=== PATIENT | female | born 1940 | race Caucasian/White ===

== ENCOUNTER → 2016-02-17 | Outpatient (CLI) | payer OTHER ==
[~2016-02-17] VITALS: Ht 172.7 cm; Wt 89.7 kg
[~2016-02-17] MED LIST: ALLEGRA ALLERG180 MG PO; AMITRIPTYLINE H10 M1 PO; AMITRIPTYLINE H10 M3 PO; ASPIRIN325 PO; CALCIUM; CALTRATE 600600 MG PO; CALTRATE PLUS1 EACH PO; CENTRUM SILVER1 EAC4 PO; COLACE100 MG PO; COMPOUNDED CREAM; DYAZIDE 37.5-21 EACH PO; ELAVIL PO; FENOFIBRIC ACI135 MG PO; FEXOFENADINE H180 MG PO; FISH OIL 1,001000 MG PO; FISHOIL; FLONASE; FLONASE 0.05%50 MCG NASAL; HYDROCHLOROTHIA25 M1 PO; HYDROCODON-ACE1 EAC7 PO; HYDROCODONE-AP1 EAC6 PO; HYDROCODONE-APA1 TA1 PO; LORTAB 5-500 T1 EAC1 PO; LOVENOX40 MG/0.4 SUBQ; MOBIC15 MG PO; MS CONTIN15 MG PO; MULTIVITAMINS PO; MULTIVITAMINS1 EAC7 PO; NEURONTIN 300300 M1 PO; NEURONTIN600 MG PO; NEURONTIN800 MG PO; NORCO 5-325 TA1 EACH PO; PROCARDIA XL30 MG PO; PROCARDIA XL60 MG PO; SIMVASTATIN40 MG PO; STOOL SOFTENER1 EAC2 PO; TRIAMTERENE-HC1 EAC1 PO; TRICOR145 MG PO; TUMS PO
--- NOTE | ~2016-02-17 | HPC ---
[facility] [address] [place] [address] PAIN MANAGEMENT CONSULTATION Name: ANNA COFFMAN Room #: REG [facility] Golden#: [id number] Admission: 02/17/16 Attend Phys: Guilherme Daily DO Discharge: Date of : 38 Report #: [id number] THIS REPORT FOR: //name// CC: Edison Daily The patient is a very pleasant 75-year-old female typically treated for lumbar radiculopathy requiring complex medication management. Last urine drug screen 11/21/2015 was positive for prescribed medications. The patient has done well with occasional epidural injections having had an epidural injection L5-S1 on 11/21/2015. She had had 2 other injections in 2015, August and May. Returns to pain clinic today noting that last injection afforded 55% relief for greater than a month, pain has gradually begun to recur. She uses MS Contin 15 mg b.i.d., hydrocodone 5/325 four a day, gabapentin 300 mg 3 tablets 3 times a day for chronic pain issues. Not having problems with daytime somnolence, mental acuity changes, or constipation. Does note her pain is an 8 or 9 on a 0-10 visual analog scale presently, primarily low back, bilateral legs, posterior aspect down through the buttocks. Pain is exacerbated with standing, walking, even sitting to some degree. PHYSICAL EXAMINATION: Relatively unchanged, 75-year-old female, BMI and vital signs as noted on EMR . Vital signs stable. Alert and oriented to person, place and time, judged to be a reasonable historian. Rises from chair using armrest, modestly antalgic gait. Lumbar flexion is limited. Positive straight leg raise bilaterally with diminished plantar flexion strength. ASSESSMENT: Symptomatic lumbar radiculopathy secondary to spinal stenosis. The patient with chronic pain issues. We reviewed the fact that opiate medications are being used to provide analgesia adequate to support activities of daily living, not attempting to achieve a specific pain score on the 0-10 Visual Analog Scale. The current opiate medications are providing sufficient analgesia to allow the patient to participate in activities of daily living. The patient is not exhibiting any aberrant behavior suggestive of drug diversion. The patient is not having any adverse reactions to medications. The patient is not suffering from daytime somnolence or mental acuity changes. The patient is managing opiate-induced constipation with appropriate lmkn-lrk-qtndidt agents and dietary considerations. The patient was counseled on concern for caution with operating a motor vehicle while using opiate medications. A physical exam was performed and the patient's functional status was evaluated. All patients with back pain were advised against the bed rest greater than 4 days and were advised to return to normal activities. Pain score assessment was noted and the treatment plan was reviewed with the patient. All current [address] [address] PAIN MANAGEMENT CONSULTATION Name: ANNA COFFMAN Room #: REG CL Golden#: [id number] Admission: 02/17/16 Attend Phys: Guilherme Daily DO Discharge: Date of : 38 Report #: [id number] medications, both prescribed and OTC were reviewed and reconciled on the electronic medical record. Tobacco screening was accomplished and smoking cessation was advised when indicated. BMI was noted and diet/exercise modification was recommended for all patients following outside normal parameters. I reviewed with the patient today their responsibilities to safeguard prescription medications, reviewed their responsibility to utilize medications only as prescribed by the physician. They are to seek and receive pain medications only from 1 physician group ( [facility]). They are to use 1 pharmacy and keep the clinic informed if they change pharmacies. Their responsibilities include making followup visits in a timely fashion and to avoid abrupt discontinuation of medication usage. Their responsibilities further include bringing their medications (bottles from the pharmacy with residual pills) to the visit for possible confirmation of pill counts and the patient understands it is their responsibility to submit to random drug screens to ensure both that the medications prescribed are present, and that no other controlled substances are present. All prescriptions provided today were generated electronically. RECOMMENDATIONS: 1. Renew current medication without change, MS Contin 15 mg b.i.d., hydrocodone 5/325 four a day, gabapentin 300 mg 3 tablets 3 times a day, 270 tablets with 2 refills, amitriptyline 30 mg at bedtime. The latter 2 medications both written with 2 refills. I have taken the liberty of writing for 3 months of her schedule to narcotic. 2. Acute exacerbation of lumbar radicular pain secondary to spinal stenosis. RECOMMENDATION: Lumbar epidural injection under fluoroscopy today. PROCEDURE: Lumbar epidural steroid injection. PROCEDURE NOTE: After both written and informed consent to include risk of spinal cord damage, increased pain, weakness and dural puncture, the patient was taken to the fluoroscopy suite, placed in the prone position. After sterile prep and drape, a skin wheal with lidocaine was raised. A 22-gauge epidural Tuohy needle was inserted in the midline at L5-S1 with good loss to resistance. Negative aspiration for cerebrospinal fluid or blood was noted. Then 1 mL of Omnipaque under biplanar fluoroscopy showed good spread within the epidural space. This was followed with 80 mg of triamcinolone plus 1 mL of 1.5% preservative-free Xylocaine, 0.5 mL Xylocaine was then injected to flush the needle; it was removed. The patient was monitored for an appropriate period of time and discharged in good and stable condition. <ELECTRONICALLY SIGNED> By: Guilherme Daily DO 02/22/16 [id number] Guilherme Daily DO /nt
[2016-02-17 10:17] VITALS: BP 142/77
== END | disposition home or self-care (01) ==
LOC: PAIN 07:14
DX: M48.06 Spinal stenosis, lumbar region (principal); G89.29 Other chronic pain

== ENCOUNTER → 2016-05-18 | Outpatient (CLI) | payer OTHER ==
[~2016-05-18] VITALS: Ht 172.7 cm; Wt 90.5 kg
[~2016-05-18] MED LIST changes: +MIRALAX17 GM PO; +SENNA8.6 MG PO
--- NOTE | ~2016-05-18 | HPC ---
[facility] [place] [address] [place] [address] PAIN MANAGEMENT CONSULTATION Name: ANNA COFFMAN Room #: REG [facility] Golden#: [id number] Admission: 05/18/16 Attend Phys: Guilherme Daily DO Discharge: Date of : 38 Report #: [id number] THIS REPORT FOR: //name// CC: Edison Daily PROCEDURE: Lumbar epidural injection under fluoroscopy. INDICATION: Symptomatic lumbar radiculopathy secondary to spinal stenosis, acute exacerbation of lumbar radicular symptoms. PROCEDURE: Lumbar epidural steroid injection. PROCEDURE NOTE: After both written and informed consent to include risk of spinal cord damage, increased pain, weakness and dural puncture, the patient was taken to the fluoroscopy suite, placed in the prone position. After sterile prep and drape, a skin wheal with lidocaine was raised. A 22-gauge epidural Tuohy needle was inserted in the midline at L5-S1 with good loss to resistance. Negative aspiration for cerebrospinal fluid or blood was noted. Then 1 mL of Omnipaque under biplanar fluoroscopy showed good spread within the epidural space. This was followed with 80 mg of triamcinolone plus 1 mL of 1.5% preservative-free Xylocaine, 0.5 mL Xylocaine was then injected to flush the needle; it was removed. The patient was monitored for an appropriate period of time and discharged in good and stable condition. By: [id number] Guilherme Daily DO /shabnam
--- NOTE | ~2016-05-18 | HPC ---
[facility] [address] [place] [address] [place] [address] PAIN MANAGEMENT CONSULTATION Name: ANNA COFFMAN Room #: REG [facility] Golden#: [id number] Admission: 05/18/16 Attend Phys: Guilherme Daily DO Discharge: Date of : 38 Report #: [id number] THIS REPORT FOR: //name// CC: Edison Daily The patient is a very pleasant 75-year-old female, pain clinic, being treated for symptomatic lumbar radiculopathy secondary to spinal stenosis, requiring complex medication management. Last urine drug screen back in November was positive for prescribed medications. She continues to take MS Contin 15 mg b.i.d., hydrocodone 5/325 up to 4 a day, Elavil 10 mg at bedtime, and gabapentin 300 mg 3 tablets 3 times a day. She returns to pain clinic today noting medications are providing sufficient analgesia to participate in activities of daily living. However, she is having exacerbation of lumbar radicular pain. She has done well with occasional epidural injections usually about every 3 months for the past 4 visits. Prior she had had 4 injections in 2014. She returns to pain clinic today noting again pain is primarily low back, bilateral legs, left greater than right, exacerbated with standing, walking, and bending. GENERAL: Shows a 75-year-old female, BMI is 30.4 kg/m2. Vital signs as noted on the EMR are within normal limits. Rises from chair using armrest. Antalgic gait. Little ataxia. Lower extremity strength is diminished, but symmetric. Straight leg raise is positive on the left. Diffuse tenderness across the low back. We reviewed the fact that opiate medications are being used to provide analgesia adequate to support activities of daily living, not attempting to achieve a specific pain score on the 0-10 Visual Analog Scale. The current opiate medications are providing sufficient analgesia to allow the patient to participate in activities of daily living. The patient is not exhibiting any aberrant behavior suggestive of drug diversion. The patient is not having any adverse reactions to medications. The patient is not suffering from daytime somnolence or mental acuity changes. The patient is managing opiate-induced constipation with appropriate bngk-vle-vrpawxc agents and dietary considerations. The patient was counseled on concern for caution with operating a motor vehicle while using opiate medications. A physical exam was performed and the patient's functional status was evaluated. All patients with back pain were advised against the bed rest greater than 4 days and were advised to return to normal activities. Pain score assessment was noted and the treatment plan was reviewed with the patient. All current medications, both prescribed and OTC were reviewed and reconciled on the electronic medical record. Tobacco screening [place] [address] PAIN MANAGEMENT CONSULTATION Name: MEGHNAANNA Room #: REG [facility] Franks#: [id number] Admission: 05/18/16 Attend Phys: Guilherme Daily DO Discharge: Date of : 38 Report #: [id number] cessation was advised when indicated. BMI was noted and diet/exercise modification was recommended for all patients following outside normal parameters. I reviewed with the patient today their responsibilities to safeguard prescription medications, reviewed their responsibility to utilize medications only as prescribed by the physician. They are to seek and receive pain medications only from 1 physician group ([facility]). They are to use 1 pharmacy and keep the clinic informed if they change pharmacies. Their responsibilities include making followup visits in a timely fashion and to avoid abrupt discontinuation of medication usage. Their responsibilities further include bringing their medications (bottles from the pharmacy with residual pills) to the visit for possible confirmation of pill counts and the patient understands it is their responsibility to submit to random drug screens to ensure both that the medications prescribed are present, and that no other controlled substances are present. All prescriptions provided today were generated electronically. ASSESSMENT: Lumbar radiculopathy secondary to spinal stenosis, requiring complex medication management, stable on baseline medications. RECOMMENDATIONS: 1. Epidural injection under fluoroscopy today L5-S1 for acute exacerbation of lumbar radicular pain. 2. Current medications unchanged for complex medication management chronic pain with neuropathic pain component including gabapentin, MS Contin, hydrocodone and Elavil. Doses as noted above, I have taken the liberty of writing for 3 months of current medication. The patient has fulfilled requirements of our opiate consent to treat contract, urine drug screen was appropriate last fall. By: [id number] Guilherme Daily DO /nt
[2016-05-18 10:13] VITALS: BP 131/66
== END ==
LOC: PAIN 06:44
DX: M48.06 Spinal stenosis, lumbar region (principal)

== ENCOUNTER → 2016-08-03 | Outpatient (CLI) | payer OTHER ==
[~2016-08-03] VITALS: Ht 172.7 cm; Wt 86.6 kg
--- NOTE | ~2016-08-03 | HPC ---
[facility] [address] [place] [address] PAIN MANAGEMENT CONSULTATION Name: ANNA COFFMAN Room #: REG ALISHA Franks#: [id number] Admission: 08/03/16 Attend Phys: Guilherme Daily DO Discharge: Date of : 38 Report #: [id number] THIS REPORT FOR: //name// CC: Edison Daily The patient is a very pleasant 75-year-old female well known to pain clinic, being treated for lumbar radiculopathy secondary to spinal stenosis requiring complex medication management. Last seen in pain clinic 05/18/2016. We continued the patient on baseline narcotic including MS Contin 15 mg b.i.d., hydrocodone 5/325 up to 4 a day, Elavil 10 mg 1-2 at bedtime and gabapentin 300 mg t.i.d. Last urine drug screen November 2015 was positive for prescribed medications. The patient returns to pain clinic today noting that the injection afforded good relief, though pain is beginning to recur. Medications continue to keep baseline medication relatively in control though she notes the pain is up to at 7/10 today. Pain is in the low back, bilateral legs. She was very concerned that she developed some numbness in her legs yesterday after sitting for a prolonged period of time. She uses a cane in her right hand. She denies saddle anesthesia or bowel or bladder continence changes. We reviewed the fact that opiate medications are being used to provide analgesia adequate to support activities of daily living, not attempting to achieve a specific pain score on the 0-10 Visual Analog Scale. The current opiate medications are providing sufficient analgesia to allow the patient to participate in activities of daily living. The patient is not exhibiting any aberrant behavior suggestive of drug diversion. The patient is not having any adverse reactions to medications. The patient is not suffering from daytime somnolence or mental acuity changes. The patient is managing opiate-induced constipation with appropriate pusr-fdm-ppnhmai agents and dietary considerations. The patient was counseled on concern for caution with operating a motor vehicle while using opiate medications. A physical exam was performed and the patient's functional status was evaluated. All patients with back pain were advised against the bed rest greater than 4 days and were advised to return to normal activities. Pain score assessment was noted and the treatment plan was reviewed with the patient. All current medications, both prescribed and OTC were reviewed and reconciled on the electronic medical record. Tobacco screening was accomplished and smoking cessation was advised when indicated. BMI was noted and diet/exercise modification was recommended for all patients following outside normal parameters. I reviewed with the patient today their responsibilities to safeguard prescription medications, reviewed their responsibility to utilize medications only as prescribed by the physician. They are to seek and receive pain medications only from 1 physician group ([facility]). [place] [address] PAIN MANAGEMENT CONSULTATION Name: ANNA COFFMAN Room #: REG [facility] Franks#: [id number] Admission: 08/03/16 Attend Phys: Guilherme Daily DO Discharge: Date of : 38 Report #: [id number] 1 pharmacy and keep the clinic informed if they change pharmacies. Their responsibilities include making followup visits in a timely fashion and to avoid abrupt discontinuation of medication usage. Their responsibilities further include bringing their medications (bottles from the pharmacy with residual pills) to the visit for possible confirmation of pill counts and the patient understands it is their responsibility to submit to random drug screens to ensure both that the medications prescribed are present, and that no other controlled substances are present. All prescriptions provided today were generated electronically. PHYSICAL EXAMINATION: Shows 75-year-old female, BMI is 29 kilograms per meter squared. Vital signs stable as noted in the EMR. Rises from chair using armrest. Antalgic gait, diffuse tenderness across the low back, positive straight leg raise on the right though lower extremity strength is generally symmetric. I do not detect any decreased 2-point discrimination in legs at this time. ASSESSMENT: 1. Symptomatic lumbar radiculopathy secondary to spinal stenosis in a patient requiring complex medication management. RECOMMENDATION: Renew current schedule 2 narcotic unchanged, MS Contin 15 mg b.i.d., hydrocodone 5/325 up to 4 a day. I have also taken the liberty of renewing Elavil 10 mg 1-2 at bedtime and gabapentin 300 mg t.i.d. 2. Acute exacerbation of lumbar radiculopathy. RECOMMENDATIONS: Epidural injection under fluoroscopy today, L5-S1. Follow up in 2-3 months for reevaluation. PROCEDURE: Lumbar epidural injection under fluoroscopy. PROCEDURE: Lumbar epidural steroid injection. PROCEDURE NOTE: After both written and informed consent to include risk of spinal cord damage, increased pain, weakness and dural puncture, the patient was taken to the fluoroscopy suite, placed in the prone position. After sterile prep and drape, a skin wheal with lidocaine was raised. A 22-gauge epidural Tuohy needle was inserted in the midline at L5-S1 with good loss to resistance. Negative aspiration for cerebrospinal fluid or blood was noted. Then 1 mL of Omnipaque under biplanar fluoroscopy showed good spread within the epidural space. This was followed with 80 mg of triamcinolone plus 1 mL of 1.5% preservative-free Xylocaine, 0.5 mL Xylocaine was then injected to flush the [facility] [address] [place] [address] PAIN MANAGEMENT CONSULTATION Name: ANNA COFFMAN Room #: REG [facility] Golden#: [id number] Admission: 08/03/16 Attend Phys: Guilherme Daily DO Discharge: Date of : 38 Report #: [id number] needle; it was removed. The patient was monitored for an appropriate period of time and discharged in good and stable condition. By: [id number] Guilherme Daily DO /nt
[2016-08-03 11:19] VITALS: BP 158/61
== END | disposition home or self-care (01) ==
LOC: PAIN 06:50
DX: M54.16 Radiculopathy, lumbar region (principal); M48.06 Spinal stenosis, lumbar region

== ENCOUNTER → 2016-11-09 | Outpatient (CLI) | payer OTHER ==
[~2016-11-09] VITALS: Ht 172.7 cm; Wt 87.8 kg
--- NOTE | ~2016-11-09 | HPC ---
[facility] [place] [address] PAIN MANAGEMENT CONSULTATION Name: ANNA COFFMAN [facility]: [id number] Admission: 11/09/16 Attend Phys: Guilherme Daily DO Discharge: Date of : 38 Report #: [id number] THIS REPORT FOR: //name// CC: Edison Daily DATE OF SERVICE: 11/09/2016 The patient is a delightful 76-year-old female, long treated for symptomatic lumbar radiculopathy secondary to spinal stenosis. The patient has been stable on MS Contin 15 mg b.i.d., hydrocodone 5/325 up to 4 a day, Elavil 10 mg 1-2 at bedtime and gabapentin 300 mg t.i.d. Last seen in the pain clinic 08/03/2016, we did an L5-S1 epidural injection with, per the patient, 75% improvement for 2 months, pain gradually has recurred. She rates her pain a 5 on a Visual Analog Scale presently. PHYSICAL EXAMINATION: Shows a 76-year-old female, BMI is 29.4 kilograms per meter squared. Blood pressure is modestly elevated at 152/96, pulse 73, respirations 16. Alert and oriented to person, place and time, judged to be a reasonable historian. Rises from chair using armrest, modestly antalgic gait, diffuse tenderness across the low back, positive straight leg raise bilaterally. Slight decreased plantar flexion strength, some paresthesia in bilateral feet. 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 Last urine drug screen 11/2015 was positive for prescribed medications. We reviewed the fact that opiate medications are being used to provide analgesia adequate to support activities of daily living, not attempting to achieve a specific pain score on the 0-10 Visual Analog Scale. The current opiate medications are providing sufficient analgesia to allow the patient to participate in activities of daily living. The patient is not exhibiting any aberrant behavior suggestive of drug diversion. The patient is not having any adverse reactions to medications. The patient is not suffering from daytime somnolence or mental acuity changes. The patient is managing opiate-induced constipation with appropriate ulyz-pqx-mqetuie agents and dietary considerations. The patient was counseled on concern for caution with operating a motor vehicle while using opiate medications. A physical exam was performed and the patient's functional status was evaluated. All patients with back pain were advised against the bed rest greater than 4 days and were advised to return to normal activities. Pain score assessment was noted and the treatment plan was reviewed with the patient. All current medications, both prescribed and OTC were reviewed and reconciled on the electronic medical record. Tobacco screening [place] [address] PAIN MANAGEMENT CONSULTATION Name: MEGHNAANNA Room #: REG ALISHA Franks#: [id number] Admission: 11/09/16 Attend Phys: Guilherme Daily DO Discharge: Date of : 38 Report #: [id number] cessation was advised when indicated. BMI was noted and diet/exercise modification was recommended for all patients following outside normal parameters. I reviewed with the patient today their responsibilities to safeguard prescription medications, reviewed their responsibility to utilize medications only as prescribed by the physician. They are to seek and receive pain medications only from 1 physician group ( [facility]). They are to use 1 pharmacy and keep the clinic informed if they change pharmacies. Their responsibilities include making followup visits in a timely fashion and to avoid abrupt discontinuation of medication usage. Their responsibilities further include bringing their medications (bottles from the pharmacy with residual pills) to the visit for possible confirmation of pill counts and the patient understands it is their responsibility to submit to random drug screens to ensure both that the medications prescribed are present, and that no other controlled substances are present. All prescriptions provided today were generated electronically. ASSESSMENT: 1. Symptomatic lumbar radiculopathy, chronic neuropathic bilateral lower extremity pain, chronic pain syndrome requiring high-risk complex medication management. Recommendation: Continue current medication unchanged, MS Contin 15 mg b.i.d., hydrocodone 5/325 up to 4 a day, Elavil 10 mg 1 at bedtime. These prescriptions were renewed for 3 months. Continue gabapentin 300 mg t.i.d., 270 tablet prescription was generated for 90 days. 2. Acute exacerbation of lumbar radicular pain. The patient has good relief with epidural injections, she had had an injection in February, May and July of this year. We will repeat epidural injection today and follow up in 3 months for reevaluation. Incidentally, she had 3 epidural injections in 2015 and 5 epidural injections in 2014. We did talk today about concern for osteoporosis. The patient is well aware of risks and benefits. Given the excellent relief she gets and improvement in function, she is willing to continue with p.r.n. injections as long as she continues her high functional status. PROCEDURE NOTE: Lumbar epidural injection under fluoroscopy. After both written and informed consent to include risk of spinal cord damage, increased pain, weakness and dural puncture, the patient was taken to the fluoroscopy suite, placed in the prone position. After sterile prep and drape, a skin wheal with lidocaine was raised. A 22-gauge epidural Tuohy needle was inserted in the midline at L5-S1 with good loss to resistance. Negative aspiration for cerebrospinal fluid or blood was noted. Then 1 mL of Omnipaque under biplanar fluoroscopy showed good spread within the epidural space. This was followed with 80 mg of triamcinolone plus 1 mL of 1.5% preservative-free Xylocaine, 0.5 mL Xylocaine was then injected to flush the needle; it was [facility] [address] [place] [address] PAIN MANAGEMENT CONSULTATION Name: ANNA COFFMAN Room #: REG [facility] Golden#: [id number] Admission: 11/09/16 Attend Phys: Guilherme Daily DO Discharge: Date of : 38 Report #: [id number] removed. The patient was monitored for an appropriate period of time and discharged in good and stable condition. <ELECTRONICALLY SIGNED> By: Guilherme Daily DO 11/12/16 1014 1522 1122 Guilherme Daily DO /nt
[2016-11-09 09:49] VITALS: BP 152/96
== END | disposition home or self-care (01) ==
LOC: PAIN 07:11
DX: M54.16 Radiculopathy, lumbar region (principal); M79.662 Pain in left lower leg; M79.661 Pain in right lower leg; G89.4 Chronic pain syndrome; M48.06 Spinal stenosis, lumbar region; Z79.891 Long term (current) use of opiate analgesic; Z79.82 Long term (current) use of aspirin

== ENCOUNTER → 2017-02-01 | Outpatient (CLI) | payer OTHER ==
[~2017-02-01] VITALS: Ht 172.7 cm; Wt 84.8 kg
[~2017-02-01] MED LIST changes: +TRILEPTAL150 MG PO
--- NOTE | ~2017-02-01 | HPC ---
[facility] [place] [address] PAIN MANAGEMENT CONSULTATION Name: ANNA COFFMAN Room #: REG ALISHA Franks#: [id number] Admission: 02/01/17 Attend Phys: Guilherme Daily DO Discharge: Date of : 38 Report #: [id number] THIS REPORT FOR: //name// CC: Edison Daily HISTORY OF PRESENT ILLNESS: The patient is a very pleasant 76-year-old female typically treated for lumbar radiculopathy secondary to spinal stenosis, bilateral lower extremity neuropathic pain requiring high risk complex medication management. Last seen in the pain clinic on 11/09/2016. Continued on baseline medication including MS Contin 15 mg b.i.d., hydrocodone 5/325 up to 4 a day. She uses Elavil 10 mg 1-2 at bedtime, gabapentin 300 mg 3 times a day. The patient had an epidural injection L5-S1 with significant improvement of baseline pain. Last drug screen was 11/2015, positive for prescribed medications. In the interval since we last saw her, she did get a bone density scan, this was accomplished on 12/06/2016. She does have some osteopenia. Suggested she follow up with her treating physician regarding same. She recently had cataract surgery, 01/21/2017 and 01/28/2017 (left and right). Because of this, I told her we would like to postpone doing a steroid injection for at least a month. The patient notes overall pain is about 5 on a VAS, again paresthesia in her feet, pain across the low back, bilateral hips and legs. Notes pain is exacerbated with standing and walking. She gets some relief with medications and when she is recumbent. PHYSICAL EXAMINATION: Otherwise unchanged. A 76-year-old female, BMI is 28.4 kilograms per meter squared. She is wearing sunglasses due to some photophobia following the cataract surgery. Blood pressure 144/71, pulse 87, respirations 20. Alert and oriented to person, place and time, judged to be a reasonable historian. Rises from chair using armrest. Diffuse tenderness across the low back, modestly antalgic gait, uses a cane for balance. Lower extremity strength is diminished, but symmetric. Straight leg raise positive bilaterally. We reviewed the fact that opiate medications are being used to provide analgesia adequate to support activities of daily living, not attempting to achieve a specific pain score on the 0-10 Visual Analog Scale. The current opiate medications are providing sufficient analgesia to allow the patient to participate in activities of daily living. The patient is not exhibiting any aberrant behavior suggestive of drug diversion. The patient is not having any adverse reactions to medications. The patient is not suffering from daytime somnolence or mental acuity changes. The patient is managing opiate-induced constipation with appropriate ibom-kdn-cysccjd agents and dietary [address] [address] PAIN MANAGEMENT CONSULTATION Name: ANNA COFFMAN [facility] #: [facility] [id number] Admission: 02/01/17 Attend Phys: Guilherme Daily DO Discharge: Date of : 38 Report #: [id number] considerations. The patient was counseled on concern for caution with operating a motor vehicle while using opiate medications. A physical exam was performed and the patient's functional status was evaluated. All patients with back pain were advised against the bed rest greater than 4 days and were advised to return to normal activities. Pain score assessment was noted and the treatment plan was reviewed with the patient. All current medications, both prescribed and OTC were reviewed and reconciled on the electronic medical record. Tobacco screening was accomplished and smoking cessation was advised when indicated. BMI was noted and diet/exercise modification was recommended for all patients following outside normal parameters. I reviewed with the patient today their responsibilities to safeguard prescription medications, reviewed their responsibility to utilize medications only as prescribed by the physician. They are to seek and receive pain medications only from 1 physician group ( [facility]). They are to use 1 pharmacy and keep the clinic informed if they change pharmacies. Their responsibilities include making followup visits in a timely fashion and to avoid abrupt discontinuation of medication usage. Their responsibilities further include bringing their medications (bottles from the pharmacy with residual pills) to the visit for possible confirmation of pill counts and the patient understands it is their responsibility to submit to random drug screens to ensure both that the medications prescribed are present, and that no other controlled substances are present. All prescriptions provided today were generated electronically. ASSESSMENT: Lumbar radiculopathy secondary to spinal stenosis, axial back pain, neuropathic pain, neurogenic claudication, requiring high risk complex medication management, stable on baseline medications. RECOMMENDATION: Continue MS Contin 15 mg b.i.d., hydrocodone 5/325 up to 4 a day. I have taken the liberty of writing for 3 months of current medication. We will tentatively make an appointment to see her in 4 weeks for consideration for lumbar epidural injection if indicated clinically. The patient was discharged in good and stable condition. <ELECTRONICALLY SIGNED> By: Guilherme Daily DO 02/14/17 0913 1235 44 Guilherme Daily DO /nt
[2017-02-01 10:33] VITALS: BP 144/71
== END ==
LOC: PAIN 01-10 06:32
DX: M48.061 Spinal stenosis, lumbar region without neurogenic claudication (principal); M54.16 Radiculopathy, lumbar region; M54.9 Dorsalgia, unspecified; I73.9 Peripheral vascular disease, unspecified; M85.88 Other specified disorders of bone density and structure, other site; Z79.899 Other long term (current) drug therapy; Z98.890 Other specified postprocedural states

== ENCOUNTER → 2017-03-07 | Outpatient (CLI) | payer OTHER ==
[~2017-03-07] VITALS: Ht 172.7 cm; Wt 84.3 kg
--- NOTE | ~2017-03-07 | HPC ---
[facility] [address] [place] [address] PAIN MANAGEMENT CONSULTATION Name: ANNA COFFMAN Room #: REG ALISHA Franks#: [id number] Admission: 03/07/17 Attend Phys: Guilherme Daily DO Discharge: Date of : 38 Report #: [id number] THIS REPORT FOR: //name// CC: Edison Daily The patient is a pleasant 76-year-old female, long treated for symptomatic lumbar radiculopathy secondary to spinal stenosis. She has a component of neuropathic pain, bilateral lower extremities requiring high risk complex medication management. Last visit 02/01/2017, we continued the patient on MS Contin 15 mg b.i.d. with hydrocodone 5/325 up to 4 a day, gabapentin 300 mg 3 tablets 3 times a day (2700 mg daily). We deferred epidural injection at that time as the patient had recently had cataract surgery. She returns to pain clinic today now 4+ weeks after last cataract surgery for anticipate epidural injection under fluoroscopy. 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 She notes that the burning dysesthesia in her feet is getting worse. Physical exam is otherwise unchanged with ongoing lumbar radicular pain and bipedal neuropathy. ASSESSMENT: Acute exacerbation of lumbar radiculopathy secondary to spinal stenosis. RECOMMENDATIONS: Regarding neuropathic pain and complex medication management, we will add Trileptal 150 mg at bedtime, gradually titrating to t.i.d. to be taken concurrently with the gabapentin 900 mg dosing. Follow up in 2 months to evaluate efficacy of medication changes. PROCEDURE: Lumbar epidural injection under fluoroscopy. PROCEDURE NOTE: After both written and informed consent to include risk of spinal cord damage, increased pain, weakness and dural puncture, the patient was taken to the fluoroscopy suite, placed in the prone position. After sterile prep and drape, a skin wheal with lidocaine was raised. A 22-gauge epidural Tuohy needle was inserted in the midline at L5-S1 with good loss to resistance. Negative aspiration for cerebrospinal fluid or blood was noted. Then 1 mL of Omnipaque under biplanar fluoroscopy showed good spread within the epidural space. This was followed with 80 mg of triamcinolone plus 1 mL of 1.5% preservative-free Xylocaine, 0.5 mL Xylocaine was then injected to flush the [address] [address] PAIN MANAGEMENT CONSULTATION Name: ANNA COFFMAN Room #: REG ALISHA Franks#: [id number] Admission: 03/07/17 Attend Phys: Guilherme Daily DO Discharge: Date of : 38 Report #: [id number] needle; it was removed. The patient was monitored for an appropriate period of time and discharged in good and stable condition. <ELECTRONICALLY SIGNED> By: Guilherme Daily DO 03/08/17 0725 1211 1310 Guilherme Daily DO /shabnam
[2017-03-07 10:22] VITALS: BP 127/76
== END | disposition home or self-care (01) ==
LOC: PAIN 06:48
DX: M48.061 Spinal stenosis, lumbar region without neurogenic claudication (principal); G89.29 Other chronic pain; M54.16 Radiculopathy, lumbar region; Z79.891 Long term (current) use of opiate analgesic; Z79.82 Long term (current) use of aspirin

== ENCOUNTER → 2017-08-05 | Outpatient (CLI) | payer OTHER ==
[~2017-08-05] VITALS: Ht 172.7 cm; Wt 85.7 kg
--- NOTE | ~2017-08-05 | HPC ---
[facility] [place] [address] PAIN MANAGEMENT CONSULTATION Name: ANNA COFFMAN Room #: REG [facility] Franks#: [id number] Admission: 08/05/17 Attend Phys: Guilherme Daily DO Discharge: Date of : 38 Report #: [id number] THIS REPORT FOR: //name// CC: Edison Daily The patient is a very pleasant 76-year-old female, typically treated for lumbar radiculopathy secondary to spinal stenosis, axial back pain. Has a component bipedal neuropathy, requiring complex medication management. Last visit, 05/06/2017. The patient was given epidural injection at L5-S1. She was continued on baseline medication including hydrocodone 5/325 up to 4 a day, MS Contin 15 mg b.i.d., gabapentin 300 mg t.i.d. and Trileptal 150 mg t.i.d. Returns to pain clinic today. Neuropathic pain seems to be problematic. Continues on gabapentin 300 mg 3 tablets 3 times a day for a total of 2700 mg. I started Trileptal 150 mg t.i.d. and Elavil 10 mg up to 30 tablets at bedtime with some efficacy for the neuropathic pain component. We did talk today about possible therapeutic interventions including a spinal cord stimulator to help perhaps some with her axial back pain, but primarily with her bipedal neuropathy. The patient was not too enthusiastic about this therapeutic modality. I did want to make her aware that it remained possible. We reviewed the fact that opiate medications are being used to provide analgesia adequate to support activities of daily living, not attempting to achieve a specific pain score on the 0-10 Visual Analog Scale. The current opiate medications are providing sufficient analgesia to allow the patient to participate in activities of daily living. The patient is not exhibiting any aberrant behavior suggestive of drug diversion. The patient is not having any adverse reactions to medications. The patient is not suffering from daytime somnolence or mental acuity changes. The patient is managing opiate-induced constipation with appropriate spmf-tnb-resfmil agents and dietary considerations. The patient was counseled on concern for caution with operating a motor vehicle while using opiate medications. A physical exam was performed and the patient's functional status was evaluated. All patients with back pain were advised against the bed rest greater than 4 days and were advised to return to normal activities. Pain score assessment was noted and the treatment plan was reviewed with the patient. All current medications, both prescribed and OTC were reviewed and reconciled on the electronic medical record. Tobacco screening was accomplished and smoking cessation was advised when indicated. BMI was noted and diet/exercise modification was recommended for all patients following outside normal parameters. I reviewed with the patient today their responsibilities to safeguard prescription medications, reviewed their responsibility to utilize medications only as prescribed by the physician. They are to seek and receive pain [address] [address] PAIN MANAGEMENT CONSULTATION Name: ANNA COFFMAN Room #: REG CL Golden#: [id number] Admission: 08/05/17 Attend Phys: Guilherme Daily DO Discharge: Date of : 38 Report #: [id number] medications only from 1 physician group ( [facility]). They are to use 1 pharmacy and keep the clinic informed if they change pharmacies. Their responsibilities include making followup visits in a timely fashion and to avoid abrupt discontinuation of medication usage. Their responsibilities further include bringing their medications (bottles from the pharmacy with residual pills) to the visit for possible confirmation of pill counts and the patient understands it is their responsibility to submit to random drug screens to ensure both that the medications prescribed are present, and that no other controlled substances are present. All prescriptions provided today were generated electronically. The patient incidentally notes ongoing lumbar radicular pain and pain in the low back, bilateral legs, exacerbated with standing, walking and bending. She had some 80% relief following prior injection. She does do well with occasional epidural injections. ASSESSMENT: 1. Neuropathic pain, bipedal pain requiring complex medication management. 2. Acute exacerbation of lumbar radiculopathy secondary to spinal stenosis. RECOMMENDATIONS: Continue MS Contin 15 mg b.i.d., hydrocodone 5/325 up to 4 a day, gabapentin 900 mg 3 times a day and Trileptal 150 mg 3 times a day with Elavil (amitriptyline) 10 mg 3 tablets at bedtime. Epidural injection under fluoroscopy today. PROCEDURE: Lumbar epidural injection under fluoroscopy. PROCEDURE NOTE: After both written and informed consent to include risk of spinal cord damage, increased pain, weakness and dural puncture, the patient was taken to the fluoroscopy suite, placed in the prone position. After sterile prep and drape, a skin wheal with lidocaine was raised. A 22-gauge epidural Tuohy needle was inserted in the midline at L5-S1 with good loss to resistance. Negative aspiration for cerebrospinal fluid or blood was noted. Then 1 mL of Omnipaque under biplanar fluoroscopy showed good spread within the epidural space. This was followed with 80 mg of triamcinolone plus 1 mL of 1.5% preservative-free Xylocaine, 0.5 mL Xylocaine was then injected to flush the needle; it was removed. The patient was monitored for an appropriate period of time and discharged in good and stable condition. <ELECTRONICALLY SIGNED> By: Guilherme Daily DO 08/07/17 0725 0937 [id number] Guilherme Daily DO /nt
[2017-08-05 09:00] VITALS: BP 139/68
== END | disposition home or self-care (01) ==
LOC: PAIN 06:36
DX: M48.061 Spinal stenosis, lumbar region without neurogenic claudication (principal); M54.16 Radiculopathy, lumbar region; G89.29 Other chronic pain; Z79.891 Long term (current) use of opiate analgesic; Z79.899 Other long term (current) drug therapy; Z98.890 Other specified postprocedural states; Z79.82 Long term (current) use of aspirin

== ENCOUNTER → 2018-01-29 | Outpatient (CLI) | payer OTHER ==
[~2018-01-29] VITALS: Ht 172.7 cm; Wt 85.7 kg
--- NOTE | ~2018-01-29 | HPC ---
[facility] [address] [place] [address] PAIN MANAGEMENT CONSULTATION Name: ANNA COFFMAN Room #: [facility] [id number] Admission: 01/29/18 Attend Phys: David Daily DO Discharge: Date of : 38 Report #: [id number] THIS REPORT FOR: //name// CC: Edison Daily DATE OF SERVICE: 01/29/2018 CHIEF COMPLAINT: Low back pain, lower extremity pain and paresthesias. HISTORY OF PRESENT ILLNESS: As you know, the patient is a 77-year-old female with longstanding history of central canal stenosis causing severe low back pain, bilateral lower extremity pain with paresthesias that began in 2008. She returns today in followup visit indicating a pain level of around 8/10. She denies any new fall or changes in medical history. She states her pain begins in low back, radiates down both legs. She describes the pain as chronic in nature, aching in sensation, exacerbated with standing, walking, improves with medications, lying down and epidural injections. Most recent epidural injection provided 75% improvement in overall pain. She returns requesting next in the series in hopes of seeing similar improvement. ALLERGIES: No known drug allergies. CURRENT MEDICATIONS: Oxcarbazepine, MS Contin, hydrocodone, gabapentin, amitriptyline, Senokot, MiraLax, fexofenadine, nifedipine, multivitamins, calcium carbonate, fluticasone, omega 3 fish oil, aspirin. SOCIAL HISTORY: The patient denies tobacco, alcohol, IV or illicit drug use. Unaccompanied today. IMAGING: No new imaging available. PQRS: The patient has osteoarthritic change in the low back, bilateral hands, bilateral knees and hips. No rheumatoid arthritis. She is placing pain intensity today at 8/10. She is not on blood thinners, but is treated for hypertension. She has been on chronic opioids since 2016. She is a low risk for opioid addiction. She is placing pain impact score 44/70, moderate to severe interference of daily activities secondary to pain. PHYSICAL EXAMINATION: VITAL SIGNS: Blood pressure 166/67, pulse 80, respiratory rate 16 and unlabored, the patient is 95% on room air. Height 5 feet 8 inches tall, weight 189 pounds, BMI calculated 28.7. GENERAL: Well-developed, well-nourished, well-hydrated 77-year-old female appearing stated age, placing current pain score 8/10. [place] [address] PAIN MANAGEMENT CONSULTATION Name: ANNA COFFMAN Room #: REG CLI [facility]#: [id number] Admission: 01/29/18 Attend Phys: David Daily DO Discharge: Date of : 38 Report #: [id number] HEENT: Normocephalic, atraumatic. Pupils equal, round, reactive to light. EXTREMITIES: Show no clubbing, no cyanosis, no edema. MUSCULOSKELETAL: Lower extremity strength is weakened bilaterally due to deconditioning. Muscle bulk and tone appears symmetrical when comparing left lower extremity to right. Seated straight leg raising positive. Supine straight leg raising positive. Panchito's test negative. Gait antalgic favoring what appears to be right lower extremity over left. ASSESSMENT: 1. Symptomatic lumbar radiculopathy. 2. Severe and progressively worsening spinal stenosis of lumbar spine. 3. Displacement of lumbar intervertebral disk with radiculopathy. 4. Lumbosacral spondylosis with radiculopathy. 5. Lumbar degeneration. 6. Peripheral neuropathy. 7. Complicated medical therapy. 8. Chronic intractable pain. PLAN: 1. The patient returns today in followup visit requesting next in the series of epidural injections. She reports 75% improvement in overall pain with previous epidural injection. We have agreed to provide the patient with the next in the series of epidural injections to build on success of previous intervention. She was advised risks and benefits, states understood and wished to proceed. We reviewed the fact that opiate medications are being used to provide analgesia adequate to support activities of daily living, not attempting to achieve a specific pain score on the 0-10 Visual Analog Scale. The current opiate medications are providing sufficient analgesia to allow the patient to participate in activities of daily living. The patient is not exhibiting any aberrant behavior suggestive of drug diversion. The patient is not having any adverse reactions to medications. The patient is not suffering from daytime somnolence or mental acuity changes. The patient is managing opiate-induced constipation with appropriate ysok-cjz-oqqolda agents and dietary considerations. The patient was counseled on concern for caution with operating a motor vehicle while using opiate medications. A physical exam was performed and the patient's functional status was evaluated. All patients with back pain were advised against the bed rest greater than 4 days and were advised to return to normal activities. Pain score assessment was noted and the treatment plan was reviewed with the patient. All current medications, both prescribed and OTC were reviewed and reconciled on the electronic medical record. Tobacco screening was accomplished and smoking cessation was advised when indicated. BMI was noted and diet/exercise modification was recommended for all patients following outside normal parameters. [address] [address] PAIN MANAGEMENT CONSULTATION Name: ANNA COFFMAN Room #: REG ALISHA Franks#: [id number] Admission: 01/29/18 Attend Phys: David GabrielaSheela Daily DO Discharge: Date of : 38 Report #: [id number] I reviewed with the patient today their responsibilities to safeguard prescription medications, reviewed their responsibility to utilize medications only as prescribed by the physician. They are to seek and receive pain medications only from 1 physician group ( [facility]). They are to use 1 pharmacy and keep the clinic informed if they change pharmacies. Their responsibilities include making followup visits in a timely fashion and to avoid abrupt discontinuation of medication usage. Their responsibilities further include bringing their medications (bottles from the pharmacy with residual pills) to the visit for possible confirmation of pill counts and the patient understands it is their responsibility to submit to random drug screens to ensure both that the medications prescribed are present, and that no other controlled substances are present. All prescriptions provided today were generated electronically. 2. The patient was provided a prescription of hydrocodone 5/325 one tab p.o. q. 6 hours p.r.n. pain, #120, releases of today, 4 weeks from today, 8 weeks from today, 3 months' worth of medication. 3. The patient was provided refill prescription of her MS Contin 15 mg dose 1 tab p.o. b.i.d., #60, releases of today, 4 weeks from today, 8 weeks from today. 4. The patient was provided prescription of Trileptal 150 mg dose 1 tab p.o. t.i.d., #90, 2 refills, 3 months' worth of medication. 5. The patient was provided refill prescription of Elavil 10 mg dose for which she takes 3 tabs p.o. at bedtime, #90, 2 refills, 3 months' worth of medication. 6. The patient was provided refill prescription of gabapentin 300 mg dose. She was given #360 tablets, which is 4 pills 3 times a day given 2 refills. 7. We will see the patient back in followup visit on an as needed basis for next in the series of epidural injections. Otherwise, we will see the patient back in followup visit in 3 months for medication management. PROCEDURE NOTE: DESCRIPTION OF PROCEDURE: L5-S1 interlaminar epidural steroid injection under fluoroscopic guidance. After obtaining written consent, the patient was taken back to fluoroscopy suite, placed in prone position with pillow under abdomen to decrease lumbar lordosis. Skin overlying lumbosacral area then prepped and draped in aseptic fashion. The L5-S1 vertebral interspace identified by AP fluoroscopy. Skin and subcutaneous tissue overlying target site of injection was anesthetized with 3 mL of 1% lidocaine. A 20-gauge 3-1/2 inch Tuohy needle advanced under fluoroscopic guidance towards the epidural space using a parasagittal approach. Epidural space identified using loss of resistance to air technique. After negative aspiration for heme or cerebrospinal fluid, 1 mL of Omnipaque injected. Lumbar epidurogram [address] [address] PAIN MANAGEMENT CONSULTATION Name: ANNA COFFMAN Room #: REG CLPhoebe Franks#: [id number] Admission: 01/29/18 Attend Phys: David Daily DO Discharge: Date of : 38 Report #: [id number] confirmed using both AP and lateral fluoroscopy. After negative aspiration for heme or cerebrospinal fluid, 3 mL of a solution containing 2 mL 40 mg per mL, 80 mg total triamcinolone, 1 mL of lidocaine 1% injected slowly. Needle retracted chcf, flushed with 1 mL of 1% lidocaine and removed. Sterile bandage placed over injection site. No new motor deficits present in the lower extremity following procedure. The patient tolerated procedure well, carefully escorted to recovery room in stable condition. No apparent complication. After meeting discharge criteria, the patient discharged home. <ELECTRONICALLY SIGNED> By: David Daily DO 02/05/18817 07 7 David Daily DO /nt
[2018-01-29 11:01] VITALS: BP 166/67
== END | disposition home or self-care (01) ==
LOC: PAIN 09:42
DX: M51.16 Intervertebral disc disorders with radiculopathy, lumbar region (principal); M48.061 Spinal stenosis, lumbar region without neurogenic claudication; M47.27 Other spondylosis with radiculopathy, lumbosacral region; G62.9 Polyneuropathy, unspecified; G89.29 Other chronic pain; Z79.82 Long term (current) use of aspirin; Z79.899 Other long term (current) drug therapy; Z98.890 Other specified postprocedural states

== ENCOUNTER → 2018-04-30 | Outpatient (CLI) | payer OTHER ==
[~2018-04-30] VITALS: Ht 172.7 cm; Wt 85.6 kg
[~2018-04-30] MED LIST changes: +AMITRIPTYLINE H25 M2 PO
--- NOTE | ~2018-04-30 | HPC ---
[facility] [address] [place] [address] PAIN MANAGEMENT CONSULTATION Name: ANNA COFFMAN Room #: REG [facility] M..#: [id number] Admission: 04/30/18 ������������������ Attend Phys: David Daily DO Discharge: ������������������ Date of : 38 Report #: [id number] THIS REPORT FOR: //name// CC: Edison Daily DATE OF SERVICE: 04/30/2018 REFERRING PHYSICIAN: Edison Kidd MD. CHIEF COMPLAINT: Low back pain, lower extremity pain and paresthesias. HISTORY OF PRESENT ILLNESS: As you know, the patient is a 77-year-old female, who suffers from severe central canal stenosis leading to low back pain. Her pain began in 2008. She is now placing pain score of 4/10. She states pain begins in low back, radiates down both legs all the way to the feet. She describes the pain as aching, burning, numbness, tingling when describing pain exacerbated with standing, walking, worse in the evening hours, improves with medication and lying down. She returns today in followup visit for medication management to address ongoing pain issues. She has been stabilized on dose of medication in the form of MS Contin, hydrocodone, Trileptal and gabapentin. She wishes to discuss possible adjustments in medication therapy to address residual symptoms of numbness and tingling. ALLERGIES: No known drug allergies. CURRENT MEDICATIONS: Oxcarbazepine, MS Contin, hydrocodone, gabapentin, amitriptyline, Senokot, MiraLax, fexofenadine, nifedipine, multivitamins, calcium carbonate, fluticasone, omega-3 fish oil, aspirin. SOCIAL HISTORY: The patient denies tobacco, alcohol, IV or illicit drug use. Unaccompanied today. IMAGING: No new imaging available. PQRS: The patient has arthritic changes of the lumbar spine, bilateral hands, bilateral knees and hips. No rheumatoid arthritis. She is placing pain intensity today at around 4/10. She is a fall risk, has not had a fall in the last 3 months. She is not on blood thinners, but is treated for hypertension. She is on long-term opioid medication. She has a [id number] risk of opioid addiction. She is placing pain impact score of 44/70 indicating moderate interference of daily activities secondary to pain. PHYSICAL EXAMINATION: VITAL SIGNS: Blood pressure 153/69, pulse 73, respiratory rate 18 and [facility] [address] [place] [address] PAIN MANAGEMENT CONSULTATION Name: ANNA COFFMAN Room #: REG CLI M.R.#: [id number] Admission: 04/30/18 ������������������ Attend Phys: David Daily DO Discharge: ������������������ Date of : 38 Report #: [id number] unlabored. The patient is 98% on room air. Height 5 feet 8 inches tall, weight 188.8 pounds, BMI calculated 28.7. GENERAL: Well-developed, well-nourished, well-hydrated 77-year-old female appearing stated age, placing current pain score today at 4/10, bilateral feet. HEENT: Normocephalic, atraumatic. Pupils equal, round, reactive to light. EXTREMITIES: Show no clubbing, no cyanosis, and no edema. MUSCULOSKELETAL: Lower extremity strength is weakened bilaterally. There appears to be significant amount deconditioning, muscle bulk and tone is symmetrical on comparing left lower extremity over right. Seated straight leg raising positive. Supine straight leg raising positive. Panchito's test negative. Gait antalgic. ASSESSMENT: 1. Symptomatic lumbar radiculopathy. 2. Severe and progressively worsening spinal stenosis of the lumbar spine. 3. Displacement of lumbar intervertebral disk with radiculopathy. 4. Lumbosacral spondylosis with radiculopathy. 5. The Lumbar degeneration. 6. Peripheral neuropathy. 7. Complicated medication therapy. 8. Chronic intractable pain. PLAN: 1. The patient returns today in followup visit where we had a very long discussion with the patient about medications and treatment options. She is experiencing now numbness and tingling in the bilateral feet. I recommend adjustments in her Elavil as the dose that she is taking is fairly low. This could help with neuropathic pain control. We will make adjustments in her medication today. The patient states she is looking into possible surgical options. I think this might be an effective way of treating the patient's spinal stenosis that has progressively worsened with increasing neuropathic symptoms. She will keep us apprised whether or not she decides to move forward with this option. 2. The patient was provided a prescription of MS Contin 15 mg dose 1 tab p.o. b.i.d., total of 30 morphine equivalents a day. She was given #60 tablets, releasing today, 4 weeks from today, 8 weeks from today. 3. The patient was provided refill prescription of hydrocodone 5/325 one tab p.o. q. 6 hours p.r.n. for pain, I have given the patient #120 releasing today, 4 weeks from today, 8 weeks from today, 3 months' worth of medication. This equates to 20 morphine equivalents a day, a total morphine equivalents of 50. 4. We reviewed the fact that opiate medications are being used to provide analgesia adequate to support activities of daily living, not attempting to achieve a specific pain score on the 0-10 Visual Analog Scale. The current opiate medications are providing sufficient analgesia to allow the patient to participate in activities of daily living. The patient is not exhibiting any aberrant behavior suggestive of drug diversion. The patient is not having any [facility] [address] [place] [address] PAIN MANAGEMENT CONSULTATION Name: ANNA COFFMAN Room #: REG [facility].#: [id number] Admission: 04/30/18 ������������������ Attend Phys: David Daily DO Discharge: ������������������ Date of : 38 Report #: [id number] adverse reactions to medications. The patient is not suffering from daytime somnolence or mental acuity changes. The patient is managing opiate-induced constipation with appropriate nbfs-okn-bumztoc agents and dietary considerations. The patient was counseled on concern for caution with operating a motor vehicle while using opiate medications. A physical exam was performed and the patient's functional status was evaluated. All patients with back pain were advised against the bed rest greater than 4 days and were advised to return to normal activities. Pain score assessment was noted and the treatment plan was reviewed with the patient. All current medications, both prescribed and OTC were reviewed and reconciled on the electronic medical record. Tobacco screening was accomplished and smoking cessation was advised when indicated. BMI was noted and diet/exercise modification was recommended for all patients following outside normal parameters. I reviewed with the patient today their responsibilities to safeguard prescription medications, reviewed their responsibility to utilize medications only as prescribed by the physician. They are to seek and receive pain medications only from 1 physician group ( [facility]). They are to use 1 pharmacy and keep the clinic informed if they change pharmacies. Their responsibilities include making followup visits in a timely fashion and to avoid abrupt discontinuation of medication usage. Their responsibilities further include bringing their medications (bottles from the pharmacy with residual pills) to the visit for possible confirmation of pill counts and the patient understands it is their responsibility to submit to random drug screens to ensure both that the medications prescribed are present, and that no other controlled substances are present. All prescriptions provided today were generated electronically. 5. The patient was provided a prescription of Trileptal 150 mg dose 1 tab p.o. t.i.d., #90, two refills. 6. The patient was provided refill prescription of gabapentin 300 mg dose 4 tabs 3 times a day. She is given #360 tablets with 2 refills, 3 months' worth of medication. 7. We will recommend increasing Elavil from current dose to 25 mg p.o. at bedtime. She will continue this for 7 nights, increase to 2 tabs or total of 50 mg p.o. at bedtime for 7 nights, then reach 75 mg dose. She was given #90 tablets, 2 refills. She was advised anytime she notes improvement in symptoms, stabilize at that dose, no improvement in symptoms, continue the escalation. 8. We will see the patient back in followup visit in 3 months for possible further changes in medication management. ��������������������������������������������� ���������������������������������������� By: ��������������������������������������������� [id number] [id number] David Daily DO /nt
[2018-04-30 10:22] VITALS: BP 153/69
--- NOTE | 2018-04-30 10:36 | NUR ---
Pain Clinic Assessment: 1. History of Osteoarthritis: Not Applicable History of Rheumatoid Arthritis: Not Applicable 2. Height: 5 ft. 8 in. 172.7 cm. Weight: 188.8 lb. oz. 85.639 kg. Patient's BMI: 28.7 3. Vital Signs: BP: 153/69 Pulse: 73 Resp: 18 Temp: 02 Sat: 98 ECG Mon: 4. Pain Intensity: 4-FEET TODAY 5. Fall Risk: Dizziness: N Needs help standing or walking: Y Fallen in the last 3 months: N Fall risk comments: 6. Patient on Blood Thinner: None 7. History of Hypertension: Y 8. Opioid Therapy greater than 6 weeks: Y Opiate Contract Signed: 08/26/15 9. Risk Assessment Tool Provided: LOW RISK 0/0 10. Functional Assessment Tool: 11. Recreational Drug Use: Never Drug Type: Tobacco Use: Never Smoker Tobacco Type: Amount or Packs/day: How Many Years: Alcohol Use: No Frequency: Quant:
== END ==
LOC: PAIN 07:07
DX: M47.27 Other spondylosis with radiculopathy, lumbosacral region (principal); G89.4 Chronic pain syndrome; G62.9 Polyneuropathy, unspecified; M48.061 Spinal stenosis, lumbar region without neurogenic claudication; Z79.899 Other long term (current) drug therapy

== ENCOUNTER → 2018-07-29 | Outpatient (CLI) | payer OTHER ==
[~2018-07-29] VITALS: Ht 172.7 cm; Wt 82.8 kg
[~2018-07-29] MED LIST changes: +NORCO 5-325 TA1 EAC1 PO
[2018-07-29 09:44] VITALS: BP 141/59
--- NOTE | 2018-07-29 09:59 | NUR ---
Pain Clinic Assessment: 1. History of Osteoarthritis: DENIES History of Rheumatoid Arthritis: DENIES 2. Height: 5 ft. 8 in. 172.7 cm. Weight: 182.6 lb. oz. 82.827 kg. Patient's BMI: 27.8 3. Vital Signs: BP: 141/59 Pulse: 80 Resp: 16 Temp: 02 Sat: 98 ECG Mon: 4. Pain Intensity: 4 5. Fall Risk: Dizziness: N Needs help standing or walking: Y Fallen in the last 3 months: N Fall risk comments: 6. Patient on Blood Thinner: None 7. History of Hypertension: Y 8. Opioid Therapy greater than 6 weeks: Y Opiate Contract Signed: 08/26/15 9. Risk Assessment Tool Provided: LOW RISK 0/0 10. Functional Assessment Tool: 11. Recreational Drug Use: Never Drug Type: Tobacco Use: Never Smoker Tobacco Type: Amount or Packs/day: How Many Years: Alcohol Use: No Frequency: Quant:
--- NOTE | 2018-07-30 15:05 | HPC ---
[facility] [address] [place] [address] PAIN MANAGEMENT CONSULTATION Name: ANNA COFFMAN Room #: REG [facility] Sabine.#: [id number] Admission: 07/29/18 ������������������ Attend Phys: Katarzyna Cyr Discharge: ������������������ Date of : 38 Report #: [id number] THIS REPORT FOR: //name// CC: Katarzyna Kidd MD DATE OF SERVICE: 07/29/2018 CHIEF COMPLAINT: Low back pain, lower extremity pain and paresthesias. HISTORY OF PRESENT ILLNESS: This is a very pleasant 77-year-old female who returns to the pain clinic today for her ongoing low back pain. She has severe spinal stenosis and she has been treated with epidurals in the past and pain medications on a daily basis. She tells me that her pain is a 4/10 today, which is a fairly average score for her and her pain is worse with standing and walking. Does escalate to a 7-8/10. Then, she sits down and rests and that is very helpful. She tells me that she does have problems with some constipation using MiraLax and Senokot, but overall, she feels that her pain medicine is very beneficial. She tells me that the amitriptyline was making her a little lightheaded and dizzy, so she has decreased that to an average of one tablet a day instead of three, which is 75 mg. She would like all of her medications refilled today. ALLERGIES: No known drug allergies. CURRENT MEDICATIONS: Oxcarbazepine, MS Contin, hydrocodone, gabapentin, amitriptyline, Senokot, MiraLax, fexofenadine, Cardizem, multivitamin, calcium, omega 3 and aspirin. PQRS: 1. The patient has arthritic changes of the lumbar spine, bilateral hands, bilateral knees and hips. Denies any rheumatoid arthritis. 2. Height is 5 feet 8 inches, weight is 182 pounds, BMI is 27. Vital signs: Blood pressure 141/59, pulse is 80, respirations 16, oxygen sat is 98. Pain score is 4/10. 3. Fall risk: Denies dizziness. Does use a cane for walking. Has not fallen in the last three months. She is not on any blood thinners, but does take medicine for hypertension. Her opioid therapy is greater than six weeks; therefore, an opioid signed contract is on the chart. Her risk assessment tool is low. Functional assessment is 44/70. 4. Recreational drug use: She denies. She is not a smoker and does not drink alcohol. We did check the prescription monitoring system. The patient is due for her refills of her medication today. There is a recent drug screen on the chart as [address] [address] PAIN MANAGEMENT CONSULTATION Name: ANNA COFFMAN Room #: REG CLI Golden#: [id number] Admission: 07/29/18 ������������������ Attend Phys: Katarzyna Cyr Discharge: ������������������ Date of : 38 Report #: [id number] well that is appropriate for her medications. PHYSICAL EXAMINATION: GENERAL: This is a well-developed, well-nourished, well-hydrated 77-year-old female who appears her stated age, placing her current pain score today at 4/10. HEENT: Normocephalic, atraumatic. Pupils equal, round and reactive to light. EXTREMITIES: Show no clubbing, no cyanosis, no edema. MUSCULOSKELETAL: Lower extremity strength is weakened bilaterally. She does use a cane. Her muscle tone and strength is symmetrical. Does complain of tenderness across her lower back that radiates to her feet with some tingling and numbness. She has a slightly antalgic gait. ASSESSMENT: 1. Symptomatic lumbar radiculopathy. 2. Severe worsening spinal stenosis of the lumbar spine. 3. Replacement of the lumbar intervertebral disk with radiculopathy. 4. Lumbosacral spondylosis with radiculopathy. 5. Peripheral neuropathy. 6. Chronic intractable pain. 7. Complex medical management under terms of written opioid agreement. We reviewed the fact that opiate medications are being used to provide analgesia adequate to support activities of daily living, not attempting to achieve a specific pain score on the 0-10 Visual Analog Scale. The current opiate medications are providing sufficient analgesia to allow the patient to participate in activities of daily living. The patient is not exhibiting any aberrant behavior suggestive of drug diversion. The patient is not having any adverse reactions to medications. The patient is not suffering from daytime somnolence or mental acuity changes. The patient is managing opiate-induced constipation with appropriate ouez-zit-atpkulh agents and dietary considerations. The patient was counseled on concern for caution with operating a motor vehicle while using opiate medications. A physical exam was performed and the patient's functional status was evaluated. All patients with back pain were advised against the bed rest greater than 4 days and were advised to return to normal activities. Pain score assessment was noted and the treatment plan was reviewed with the patient. All current medications, both prescribed and OTC were reviewed and reconciled on the electronic medical record. Tobacco screening was accomplished and smoking cessation was advised when indicated. BMI was noted and diet/exercise modification was recommended for all patients following outside normal parameters. I reviewed with the patient today their responsibilities to safeguard prescription medications, reviewed their responsibility to utilize medications only as prescribed by the physician. They are to seek and receive pain [facility] [address] [place] [address] PAIN MANAGEMENT CONSULTATION Name: ANNA COFFMAN Room #: REG ALISHA M.Anita.#: [id number] Admission: 07/29/18 ������������������ Attend Phys: Katarzyna ALEKS Vinsontamir Discharge: ������������������ Date of : 38 Report #: [id number] medications only from 1 physician group ([facility]). They are to use 1 pharmacy and keep the clinic informed if they change pharmacies. Their responsibilities include making followup visits in a timely fashion and to avoid abrupt discontinuation of medication usage. Their responsibilities further include bringing their medications (bottles from the pharmacy with residual pills) to the visit for possible confirmation of pill counts and the patient understands it is their responsibility to submit to random drug screens to ensure both that the medications prescribed are present, and that no other controlled substances are present. All prescriptions provided today were generated electronically. PLAN: 1. We discussed treatment options with the patient today. The patient tells me that the amitriptyline at 75 mg made her slightly dizzy and lightheaded, especially when she got up in the middle of the night to go to the restroom. She decreased it to 50 mg, still had that episode, so most days, she takes 25 mg at bedtime and feels stable on that. If she is having increased pain today, she does take 50 of this, but no need for refills of that medication today. We will call again if she does request it. 2. Scripts given for her MS Contin 50 mg, #60 for today, 4-week and 8-week release and her hydrocodone 5/325 up to four times a day. This places the patient at 50 morphine milligram equivalents according to the CDC guidelines at their limit and so, therefore she is seen every three months. 3. Gabapentin 300 mg, the patient takes four tablets three times a day, 360 with two additional refills and Trileptal 150 three times a day, #90 with two additional refills. 4. The patient says that she will call as needed for an epidural, but currently, she feels like she is doing quite well. 5. The patient seen with Dr. Killian sexton who collaborated care. ��������������������������������������������� <ELECTRONICALLY SIGNED> ���������������������������������������� By: Katarzyna Cyr ��������������������������������������������� 07/30/18 1505 1050 1502 Katarzyna Cyr /nt
== END ==
LOC: PAIN 06:53
DX: M48.061 Spinal stenosis, lumbar region without neurogenic claudication (principal); M47.27 Other spondylosis with radiculopathy, lumbosacral region; G89.29 Other chronic pain; Z79.899 Other long term (current) drug therapy

== ENCOUNTER → 2018-10-29 | Outpatient (CLI) | payer OTHER ==
[~2018-10-29] VITALS: Ht 172.7 cm; Wt 83.9 kg
[2018-10-29 10:54] VITALS: BP 166/79
--- NOTE | 2018-10-29 10:59 | NUR ---
Pain Clinic Assessment: 1. History of Osteoarthritis: DENIES History of Rheumatoid Arthritis: DENIES 2. Height: 5 ft. 8 in. 172.7 cm. Weight: 185.0 lb. oz. 83.916 kg. Patient's BMI: 28.1 3. Vital Signs: BP: 166/79 Pulse: 75 Resp: 14 Temp: 02 Sat: 98 ECG Mon: 4. Pain Intensity: 6 5. Fall Risk: Dizziness: N Needs help standing or walking: N Fallen in the last 3 months: N Fall risk comments: 6. Patient on Blood Thinner: None 7. History of Hypertension: Y 8. Opioid Therapy greater than 6 weeks: Y Opiate Contract Signed: 08/26/15 9. Risk Assessment Tool Provided: LOW RISK 0/0 10. Functional Assessment Tool: 11. Recreational Drug Use: Never Drug Type: Tobacco Use: Never Smoker Tobacco Type: Amount or Packs/day: How Many Years: Alcohol Use: No Frequency: Quant:
--- NOTE | 2018-11-05 09:31 | HPC ---
[facility] [place] [address] PAIN MANAGEMENT CONSULTATION Name: ANNA COFFMAN Room #: REG [facility] Sabine.#: [id number] Admission: 10/29/18 ������������������ Attend Phys: David Daily DO Discharge: ������������������ Date of : 38 Report #: [id number] THIS REPORT FOR: //name// CC: Edison Daily DATE OF SERVICE: 10/29/2018 CHIEF COMPLAINT: Low back pain, lower extremity pain and paresthesias. HISTORY OF PRESENT ILLNESS: As you know, the patient is an 78-year-old female who returns today in followup visit with ongoing low back pain, lower extremity pain and paresthesias, requesting refill on medications. As you are aware, the patient suffers from severe spinal stenosis, which has been treated with epidurals and medication management. She returns today in followup visit, requesting refill on medications. She is taking MS Contin 15 mg twice a day, utilizing Lodi 5/325 four times a day and 2 neuropathic pain medications, one in the form of gabapentin, the other in oxcarbazepine. She is denying any side effects to these medications. She is placing pain score though at 6/10. She returns today in followup visit, requesting refill on medications. We have calculated the patient's morphine equivalents, which equals about 50 morphine equivalents a day. She returns today requesting refill of medications. She indicates no changes in medical history since our last visit. ALLERGIES: No known drug allergies. CURRENT MEDICATIONS: Oxcarbazepine 150 mg t.i.d., gabapentin 1200 mg t.i.d., MS Contin 15 mg t.i.d., hydrocodone/acetaminophen 5/325 q.i.d., amitriptyline 25 mg 3 tabs p.o. at bedtime, Senokot-S 2 tabs twice a day, MiraLax 17 grams per day, fexofenadine 180 mg per day, nifedipine XL 30 mg once a day, multivitamin 1 tab per day, fenofibric 135 mg once a day, calcium carbonate 1 tab per day, fluticasone 2 sprays each nostril per day, omega-3 fish oil 1 tab per day, aspirin 325 mg per day. SOCIAL HISTORY: The patient denies tobacco, alcohol, IV or illicit drug use. She is unaccompanied today. IMAGING: No new imaging available. PQRS: The patient has known arthritic changes of the lumbar spine. No rheumatoid arthritis. She is placing at pain intensity 6/10. She is not a fall risk, has not had a fall in the last 3 months. She is not on blood thinners. She is treated for hypertension. She is on chronic opioids. She has a low opioid addiction potential. Pain impact score 58/70 indicating severe interference of daily activities secondary to pain. [address] [address] PAIN MANAGEMENT CONSULTATION Name: ANNA COFFMAN [facility] [id number] Admission: 10/29/18 ������������������ Attend Phys: David Daily DO Discharge: ������������������ Date of : 38 Report #: [id number] PHYSICAL EXAMINATION: VITAL SIGNS: Blood pressure 166/79, pulse 75, respiratory rate 14 and unlabored. The patient is 98% on room air. Height 5 feet 8 inches tall, weight 185 pounds, BMI calculated 28.1. GENERAL: Well-developed, well-nourished, well-hydrated 78-year-old female appearing stated age, pain is rated around 6/10. HEENT: Normocephalic, atraumatic. Pupils equal, round, reactive to light. EXTREMITIES: Show no clubbing, no cyanosis, and no edema. MUSCULOSKELETAL: Lower extremity strength is symmetrical, but weakened bilaterally, this appears to be due to deconditioning. She is using a cane for ambulation. There is some tenderness to palpation over the paraspinal musculature of lower lumbar spine. No spinous process tenderness. Seated straight leg raising negative. Supine straight leg raising is equivocal. ASSESSMENT: 1. Symptomatic lumbar radiculopathy. 2. Progressively worsening spinal stenosis of lumbar spine. 3. Displacement of lumbar intervertebral disk with radiculopathy. 4. Lumbosacral spondylosis with radiculopathy. 5. Peripheral neuropathy. 6. Complex medication management utilizing scheduled medication. 7. Chronic intractable pain. PLAN: 1. The patient returns today in followup visit where we have discussed the efficacy of medications being provided. Despite the elevated pain score of 6/10, she states she was receiving upwards of 50% improvement in overall pain with therapy. She is denying side effects to the medication including somnolence, decreased mental acuity, disorientation, confusion, mental slowing and constipation. She requests refill of medications today. 2. We reviewed the fact that opiate medications are being used to provide analgesia adequate to support activities of daily living, not attempting to achieve a specific pain score on the 0-10 Visual Analog Scale. The current opiate medications are providing sufficient analgesia to allow the patient to participate in activities of daily living. The patient is not exhibiting any aberrant behavior suggestive of drug diversion. The patient is not having any adverse reactions to medications. The patient is not suffering from daytime somnolence or mental acuity changes. The patient is managing opiate-induced constipation with appropriate jzaf-ouw-gkazvfp agents and dietary considerations. The patient was counseled on concern for caution with operating a motor vehicle while using opiate medications. A physical exam was performed and the patient's functional status was evaluated. All patients with back pain were advised against the bed rest greater than 4 days and were advised to return to normal activities. Pain score assessment was noted and the treatment plan was reviewed with the patient. All current [facility] [address] [place] [address] PAIN MANAGEMENT CONSULTATION Name: ANNA COFFMAN [facility]Sheela[facility] [id number] Admission: 10/29/18 ������������������ Attend Phys: David Daily DO Discharge: ������������������ Date of : 38 Report #: [id number] medications, both prescribed and OTC were reviewed and reconciled on the electronic medical record. Tobacco screening was accomplished and smoking cessation was advised when indicated. BMI was noted and diet/exercise modification was recommended for all patients following outside normal parameters. I reviewed with the patient today their responsibilities to safeguard prescription medications, reviewed their responsibility to utilize medications only as prescribed by the physician. They are to seek and receive pain medications only from 1 physician group ([facility]). They are to use 1 pharmacy and keep the clinic informed if they change pharmacies. Their responsibilities include making followup visits in a timely fashion and to avoid abrupt discontinuation of medication usage. Their responsibilities further include bringing their medications (bottles from the pharmacy with residual pills) to the visit for possible confirmation of pill counts and the patient understands it is their responsibility to submit to random drug screens to ensure both that the medications prescribed are present, and that no other controlled substances are present. All prescriptions provided today were generated electronically. 3. We have reviewed the patient's PDMP both on the [place] and [place] side. We are unable to find any concerning entries in those reports. 4. The patient was provided prescription of MS Contin 15 mg dose 1 tab p.o. b.i.d., I have given the patient #60, releasing today, 4 weeks from today and 8 weeks from today, 3 months' worth of medication. 5. The patient was provided prescription of Lodi 5/325 one tab p.o. q. 6 hours p.r.n. for pain, #120, releasing today, 4 weeks from today and 8 weeks from today, 3 months' worth of medication. 6. The patient was provided a refill prescription of oxcarbazepine 150 mg dose 1 tab p.o. t.i.d., #90, 2 refills. I did discuss this medication with the patient today. I am not confident this is providing much in the way of improvement and may ultimately wean off this therapy. We will consider this option as we move forward. 7. The patient was provided prescription of gabapentin 300 mg dose 4 tabs t.i.d., #360, 2 refills, 3 months' worth of medication. 8. We will see the patient back in followup visit on an as needed basis for interventional treatments; otherwise back in 3 months for medication management. ��������������������������������������������� <ELECTRONICALLY SIGNED> ���������������������������������������� By: David Daily DO ��������������������������������������������� 11/05/18 0931 0836 1445 David Daily DO /nt
== END ==
LOC: PAIN 07:02
DX: M51.16 Intervertebral disc disorders with radiculopathy, lumbar region (principal); M47.27 Other spondylosis with radiculopathy, lumbosacral region; G62.9 Polyneuropathy, unspecified; G89.4 Chronic pain syndrome; Z79.899 Other long term (current) drug therapy

== ENCOUNTER → 2019-01-27 | Outpatient (CLI) | payer OTHER ==
[~2019-01-27] VITALS: Ht 172.7 cm; Wt 81.3 kg
[~2019-01-27] MED LIST changes: +AMITRIPTYLINE H25 M3 PO; +NEURONTIN300 MG PO; +OXCARBAZEPINE150 MG PO
--- NOTE | 2019-01-27 10:15 | NUR ---
Pain Clinic Assessment: 1. History of Osteoarthritis: BACK HANDS History of Rheumatoid Arthritis: Not Applicable 2. Height: ft. in. cm. Weight: lb. oz. kg. Patient's BMI: 3. Vital Signs: BP: Pulse: Resp: Temp: 02 Sat: ECG Mon: 4. Pain Intensity: 6 5. Fall Risk: Dizziness: N Needs help standing or walking: Y Fallen in the last 3 months: N Fall risk comments: 6. Patient on Blood Thinner: None 7. History of Hypertension: Y 8. Opioid Therapy greater than 6 weeks: Y Opiate Contract Signed: 08/26/15 9. Risk Assessment Tool Provided: LOW RISK 0/0Y 10. Functional Assessment Tool: 11. Recreational Drug Use: Never Drug Type: Tobacco Use: Never Smoker Tobacco Type: Amount or Packs/day: How Many Years: Alcohol Use: No Frequency: Quant:
[2019-01-27 10:38] VITALS: BP 150/60
--- NOTE | 2019-01-27 15:33 | HPC ---
[facility] [place] [address] [place] [address] PAIN MANAGEMENT CONSULTATION Name: ANNA COFFMAN [id number] Admission: 01/27/19 Attend Phys: Katarzyna Cyr Discharge: Date of : 38 Report #: [id number] THIS REPORT FOR: //name// CC: Katarzyna Daily DO DATE OF SERVICE: 01/27/2019 CHIEF COMPLAINT: Low back pain, lower extremity pain and paresthesias. HISTORY OF PRESENT ILLNESS: This is a very pleasant 78-year-old female who returns to the pain clinic today for refill of her medications. She is reporting her pain at a 6/10. It is located in her lower back and bilateral legs and feet. She does have severe spinal stenosis that causes her increased pain. She is feeling that the medications are beneficial and not needing an epidural for quite some time since the medications have been beneficial. She does report that standing and walking for prolonged periods of time does increase her pain, but her medications as well as sitting and lying down are beneficial. Again, her pain score is 6/10. It is a burning, aching, tenderness in her lower back and legs. She denies any problems with constipation that is not relieved by hrzf-zdu-vfxloue medications and she does not suffer from any daytime sleepiness. Today, she would like refills of her morphine and hydrocodone. ALLERGIES: No known drug allergies. CURRENT LIST OF MEDICATIONS: Amitriptyline 25 mg at bedtime, oxcarbazepine 150 mg t.i.d., gabapentin 1200 mg t.i.d., morphine sulfate 15 mg b.i.d., hydrocodone 5/325 q.i.d. p.r.n., Senokot, MiraLax, Gricelda, Procardia, multivitamin, fenofibric acid, Tums, Flonase, omega-3 and aspirin. PQRS: 1. She has known arthritic changes in her lumbar spine, no rheumatoid arthritis. 2. Height is 5 feet 8 inches, weight is 179. 3. Vital signs: 150/60, pulse is 67, respirations 16, oxygen sat is 97%. 4. Pain score 6/10. 5. Denies dizziness. Does need a cane for walking, has not fallen in the last 3 months. 6. The patient is not on any blood thinners, but does take medicine for hypertension. 7. Opioid therapy is greater than 6 weeks; therefore, an opioid signed contract is on the chart. 8. Risk [place] [address] PAIN MANAGEMENT CONSULTATION Name: ANNA COFFMAN Room #: REG [facility] Golden#: [id number] Admission: 01/27/19 Attend Phys: Katarzyna Cyr Discharge: Date of : 38 Report #: [id number] 9. Functional assessment is 44/70. 10. Recreational drug use, she denies. She is not a smoker and does not drink alcohol. According to the prescription monitoring system, the patient is due to fill her medications today. She does fill them in a timely fashion by only Dr. David Daily. There is a random drug screen on the chart that is appropriate as well. We will recheck that at her next appointment, will be greater than 1 year. PHYSICAL EXAMINATION: GENERAL: This is a well-developed, well-nourished, alert and oriented 78-year-old female who appears her stated age, placing her current pain score at 6/10. HEENT: Normocephalic, atraumatic. Extraocular eye muscles are intact. Mucous membranes are moist. EXTREMITIES: No clubbing, no cyanosis, no edema. MUSCULOSKELETAL: She has tenderness to palpation over her lumbosacral paraspinal musculature. Seated straight leg raising is negative. Her lower extremity strength is symmetrical, but weakened bilaterally due to deconditioning. She does use a cane for ambulation and walks with a slow antalgic gait. ASSESSMENT: 1. Symptomatic lumbar radiculopathy. 2. Spinal stenosis of the lumbar spine. 3. Displacement of lumbar intervertebral disk with radiculopathy. 4. Lumbosacral spondylosis with radiculopathy. 5. Peripheral neuropathy. 6. Chronic intractable pain. 7. Complex medical management under terms of written opioid agreement. PLAN: 1. We discussed treatment options with the patient today. The patient finds her medications very beneficial in reducing her pain. She does not experience any side effects and is able to keep as active as she would like with her home life and visiting with family and friends. We will refill her medications today under the direction of Dr. David Daily who collaborated care of her hydrocodone 5/325 #120 for today, for an 8-week as well as her morphine sulfate ER 15 mg twice a day for today, for an 8-week. These were sent to her [facility]'s pharmacy for refill. 2. According to the CDC guidelines, her morphine mEq is 50 MMEs per day. 3. We also will refill her gabapentin that she takes 1200 mg 3 times a day #360 with 5 additional refills sent, amitriptyline 25 mg at bedtime #90 with 5 additional refills and her oxcarbazepine 150 mg t.i.d. #90 with 5 additional refills. All were electronically sent to [facility]. [facility] [address] [place] [address] PAIN MANAGEMENT CONSULTATION Name: MEGHNAANNA BENNETT Room #: REG ALISHA Franks#: [id number] Admission: 01/27/19 Attend Phys: Katarzyna Cyr Discharge: Date of : 38 Report #: [id number] 4. We will check a random drug screen on this patient at the next visit. Again, the patient was seen in collaboration with Dr. David Daily. The patient was discharged to home. <ELECTRONICALLY SIGNED> By: Katarzyna Cyr 01/27/19 1533 1115 1519 Katarzyna Cyr /nt
== END ==
LOC: PAIN 10:05
DX: M48.061 Spinal stenosis, lumbar region without neurogenic claudication (principal); M51.16 Intervertebral disc disorders with radiculopathy, lumbar region; M47.27 Other spondylosis with radiculopathy, lumbosacral region; G62.9 Polyneuropathy, unspecified; G89.4 Chronic pain syndrome; Z79.891 Long term (current) use of opiate analgesic

== ENCOUNTER → 2019-05-20 | Outpatient (CLI) | payer OTHER ==
--- NOTE | 2019-05-21 16:33 | HPC ---
[facility] [address] [place] [address] PAIN MANAGEMENT CONSULTATION Name: ANNA COFFMAN Room #: REG SOURAVPhoebe Regalado.#: [id number] Admission: 05/20/19 Attend Phys: Katarzyna Cyr Discharge: Date of : 38 Report #: [id number] THIS REPORT FOR: cc: Edison Kidd MD, Elliott L. MD Hocker,Katarzyna FINK ~ DATE OF SERVICE: 05/20/2019 This is a tele-med visit via phone. We are unable to have video tele-med due to it is not available in our clinic, we are doing a phone tele-med appointment. CHIEF COMPLAINT: Low back pain, left lower extremity pain and paresthesias. HISTORY OF PRESENT ILLNESS: This is a very pleasant 78-year-old female who today is reporting a pain score of 4-5/10 in her lower back as well as in her right leg. She tells me that she fell in March and broke her right femur. She was hospitalized at [facility] and then went to [facility] in [place] for rehab. She is currently at home recovering. She continues to do her exercises at home. She tells me that her scar is healed nicely. She has 3 screws placed in her right femur. She reported to me that she had very minimal pain postoperatively. They prescribed her pain medicines while she was in the hospital and at rehab, so therefore it has been greater than 4 months since we have seen her. Today, she is requesting a refill of her MS Contin and hydrocodone. She does not need refills of gabapentin, amitriptyline or oxcarbazepine that she takes from us as well for her chronic pain conditions. She has plenty of refills at this time. She denies any problems with constipation or daytime sleepiness as a result of her medicines. CURRENT ALLERGIES: No known drug allergies. CURRENT LIST OF MEDICATIONS: The nurse reconciled her medications today via phone and she does take amitriptyline 25 mg at bedtime, oxcarbazepine 150 t.i.d., gabapentin 1200 mg t.i.d., morphine 15 mg b.i.d., hydrocodone 5/325 p.r.n., senna, MiraLax, Gricelda, Procardia, multivitamin, fenofibric acid, Tums, fish oil and aspirin. PQRS: 1. She does have osteoarthritic changes in her back and hands. She denies any rheumatoid arthritis. We did not weigh or do vital signs since it is a tele-med appointment. 2. Pain score is 4-5/10 today. 3. Fall risks: She denies any dizziness. She is using a walker for ambulation and she has fallen in the last 3 months. 4. The patient is not on any blood thinners, but does take medicine for hypertension. Her opioid therapy is greater than 6 weeks, therefore an opioid signed contract is on the chart. Her risk assessment tool is low. Functional [address] [address] PAIN MANAGEMENT CONSULTATION Name: MEGHNAAGUSTÍNANNAGLORIA BENNETT Room #: REG ALISHA Franks#: [id number] Admission: 05/20/19 Attend Phys: Katarzyna Cyr Discharge: Date of : 38 Report #: [id number] assessment was not assessed today. 5. Recreational drug use, she denies. She is not a smoker and does not drink alcohol. According to the prescription monitoring system, the patient is filling appropriately, though she has not filled since March due to her recent hospitalization and rehab stay. Her morphine mEq per day is 50 MME. PHYSICAL EXAMINATION: This was deferred due to a telemed phone visit We did do review of systems. REVIEW OF SYSTEMS: GENERAL: The patient today is alert and orientated. Answered all of my questions appropriately. Placing her current pain score 4-5/10. HEENT: She denies any problems with her vision or her hearing. EXTREMITIES: She denies any swelling in her legs today. She does tell me her incision on her right femur is well healed. MUSCULOSKELETAL: The patient is using a walker for ambulation at all times. She states that she walks slowly in her ambulation and complains of tenderness across her lower back muscles. ASSESSMENT: 1. Symptomatic lumbar radiculopathy. 2. Spinal stenosis of the lumbar spine. 3. Displacement of intervertebral disk with radiculopathy. 4. Lumbosacral spondylosis with radiculopathy. 5. Peripheral neuropathy. 6. Recent fractured right femur with repair and implantation of screws. 7. Complex medical management under terms of written opioid agreement. We reviewed the fact that opiate medications are being used to provide analgesia adequate to support activities of daily living, not attempting to achieve a specific pain score on the 0-10 Visual Analog Scale. The current opiate medications are providing sufficient analgesia to allow the patient to participate in activities of daily living. The patient is not exhibiting any aberrant behavior suggestive of drug diversion. The patient is not having any adverse reactions to medications. The patient is not suffering from daytime somnolence or mental acuity changes. The patient is managing opiate-induced constipation with appropriate vwvh-geb-qbxogvy agents and dietary considerations. The patient was counseled on concern for caution with operating a motor vehicle while using opiate medications. A physical exam was performed and the patient's functional status was evaluated. All patients with back pain were advised against the bed rest greater than 4 days and were advised to return to normal activities. Pain score assessment was noted and the treatment plan was reviewed with the patient. All current [facility] [address] [place] [address] PAIN MANAGEMENT CONSULTATION Name: ANNA COFFMAN Room #: REG Phoebe Lamont.Anita.#: [id number] Admission: 05/20/19 Attend Phys: Katarzyna Cyr Discharge: Date of : 38 Report #: [id number] medications, both prescribed and OTC were reviewed and reconciled on the electronic medical record. Tobacco screening was accomplished and smoking cessation was advised when indicated. BMI was noted and diet/exercise modification was recommended for all patients following outside normal parameters. I reviewed with the patient today their responsibilities to safeguard prescription medications, reviewed their responsibility to utilize medications only as prescribed by the physician. They are to seek and receive pain medications only from 1 physician group ( [facility]). They are to use 1 pharmacy and keep the clinic informed if they change pharmacies. Their responsibilities include making followup visits in a timely fashion and to avoid abrupt discontinuation of medication usage. Their responsibilities further include bringing their medications (bottles from the pharmacy with residual pills) to the visit for possible confirmation of pill counts and the patient understands it is their responsibility to submit to random drug screens to ensure both that the medications prescribed are present, and that no other controlled substances are present. All prescriptions provided today were generated electronically. PLAN: 1. We discussed treatment options with the patient today via the phone. She reports that her pain has been very well controlled even despite having surgery. She did not need any increase in her oral pain medications. Today, we will send electronically her MS Contin 50 mg, #60 for today, 4-week and 8-week release as well as her hydrocodone 5/325, #120 for 3 months. These will be sent electronically by Dr. David Daily. 2. The patient is not needing refills of her amitriptyline, gabapentin or oxcarbazepine at this time. 3. We explained to the patient during this outbreak of COVID to try to take the lowest most effective dose of her breakthrough pain medicine. In case there was a decrease in supply, we would hate for her to have any withdrawal symptoms because she is unable to get her medicines. We have also encouraged her to fill them at least a week early so she has supply at home. The patient verbalizes understanding. 4. The patient will follow up with us in 3 months. The patient's care was collaborated with Dr. David Daily who was here while I was doing my tele-conference and collaborating care today. <ELECTRONICALLY SIGNED> By: Katarzyna Cyr 05/21/19 1633 [id number] Katarzyna Cyr /nt
== END ==
LOC: TELEPC 10:54 → PAIN 12:46
DX: M47.27 Other spondylosis with radiculopathy, lumbosacral region (principal); M51.16 Intervertebral disc disorders with radiculopathy, lumbar region; G62.9 Polyneuropathy, unspecified; M48.061 Spinal stenosis, lumbar region without neurogenic claudication; R20.2 Paresthesia of skin; Z79.899 Other long term (current) drug therapy

== ENCOUNTER → 2019-07-15 | Outpatient (CLI) | payer OTHER ==
[~2019-07-15] VITALS: Ht 172.7 cm; Wt 79.7 kg
[~2019-07-15] MED LIST changes: +NEURONTIN 300M300 M2 PO
[2019-07-15 09:31] VITALS: BP 140/67
--- NOTE | 2019-07-15 09:46 | NUR ---
Pain Clinic Assessment: 1. History of Osteoarthritis: BACK HANDS History of Rheumatoid Arthritis: DENIES 2. Height: 5 ft. 8 in. 172.7 cm. Weight: 175.6 lb. oz. 79.652 kg. Patient's BMI: 26.7 3. Vital Signs: BP: 140/67 Pulse: 72 Resp: 14 Temp: 02 Sat: 100 ECG Mon: 4. Pain Intensity: 4-5 5. Fall Risk: Dizziness: N Needs help standing or walking: Y Fallen in the last 3 months: Y Fall risk comments: 6. Patient on Blood Thinner: None 7. History of Hypertension: Y 8. Opioid Therapy greater than 6 weeks: Y Opiate Contract Signed: 08/26/15 9. Risk Assessment Tool Provided: LOW RISK 0/0Y 10. Functional Assessment Tool: 11. Recreational Drug Use: Never Drug Type: Tobacco Use: Never Smoker Tobacco Type: Amount or Packs/day: How Many Years: Alcohol Use: No Frequency: Quant:
--- NOTE | 2019-07-16 08:51 | HPC ---
[facility] [address] [address] PAIN MANAGEMENT CONSULTATION Name: ANNA COFFMAN Room #: REG ALISHA Sabine.#: [id number] Admission: 07/15/19 Attend Phys: Katarzyna Cyr Discharge: Date of : 38 Report #: [id number] THIS REPORT FOR: cc: Edison Kidd MD, Elliott L. MD Hocker,Katarzyna FINK ~ CC: CARLY BOWEN DO DATE OF SERVICE: 07/15/2019 CHIEF COMPLAINT: Low back pain, left lower extremity pain and paresthesias. HISTORY OF PRESENT ILLNESS: This is a very pleasant 78-year-old female who is well known to our pain clinic. She returns today for refill of her opioid medications that she uses to help manage her low back pain and bilateral leg pain. She states that her left leg is more painful than her right, but she feels like she is doing quite well on her current regimen, rating her pain score from 4-5. She states it is an aching, burning feeling, especially in her legs and feet, worse when she stands and walks. She uses canes to help her with ambulation. She feels that her medication as well as lying and sitting are beneficial in decreasing her pain. The patient states that she has fully recovered from her broken femur. She does continue stretching exercises at home and uses her canes for walking, but she is no longer having pain in that surgical area. The patient also reports she has some constipation issues that are controlled with MiraLax and Senokot. ALLERGIES: No known drug allergies. CURRENT LIST OF MEDICATIONS: Morphine sulfate 15 mg b.i.d., hydrocodone 5/325 p.r.n., amitriptyline 25 mg at bedtime, oxcarbazepine 150 t.i.d., gabapentin 1200 mg t.i.d., Senokot, MiraLax, Gricelda, Procardia, multivitamin, fenofibric, Tums, Flonase, fish oil and aspirin. PQRS: 1. She has arthritic changes in her back and hands. Denies any rheumatoid arthritis. 2. Height is 5 feet 8 inches, weight is 175, BMI is 26. 3. Vital signs 140/67, pulse is 72, respirations 14, oxygen sat is 100. 4. Pain score is 4-5. 5. Denies dizziness. Does use canes for ambulation and has fallen in the last 3 months. 6. The patient is not on any blood thinners, but does take medicine for hypertension. Her opioid therapy is greater than 6 weeks; therefore, an opioid signed contract is on the chart. Risk assessment tool is low. Functional assessment is 44/70. [address] [address] PAIN MANAGEMENT CONSULTATION Name: MEGHNAAGUSTÍNANNAGLORIA BENNETT Room #: REG CLPhoebe Franks#: [id number] Admission: 07/15/19 Attend Phys: Katarzyna Cyr Discharge: Date of : 38 Report #: [id number] 7. Recreational drug use, she denies. She is not a smoker and does not drink alcohol. According to the prescription monitoring system, the patient is filling appropriately for her medications. She is due to fill those today. She does fill them in a timely fashion. According to the CDC guidelines, her morphine mEq is 15 mme's per day. PHYSICAL EXAMINATION: GENERAL: This is a well-developed, well-nourished, well-hydrated 78-year-old female who appears her stated age, placing her current pain score today at 4-5. She is alert and orientated and answering all my questions appropriately. HEENT: Normocephalic, atraumatic. Extraocular eye muscles are intact. She is wearing glasses and a mask today. MUSCULOSKELETAL: Lower extremity strength is symmetrical, but weakened bilaterally due to deconditioning. She does use 2 canes for ambulation. She has tenderness that is palpable in her paraspinal musculature of her lower spine. Seated straight leg raising is negative. She does have 1+ edema in her lower extremities today with no clubbing, no cyanosis. ASSESSMENT: 1. Symptomatic lumbar radiculopathy. 2. Progressively worsening spinal stenosis of lumbar spine. 3. Displacement of lumbar intervertebral disk with radiculopathy. 4. Lumbosacral spondylosis with radiculopathy. 5. Peripheral neuropathy. 6. Complex medical management utilizing scheduled medications. We reviewed the fact that opiate medications are being used to provide analgesia adequate to support activities of daily living, not attempting to achieve a specific pain score on the 0-10 Visual Analog Scale. The current opiate medications are providing sufficient analgesia to allow the patient to participate in activities of daily living. The patient is not exhibiting any aberrant behavior suggestive of drug diversion. The patient is not having any adverse reactions to medications. The patient is not suffering from daytime somnolence or mental acuity changes. The patient is managing opiate-induced constipation with appropriate fofk-evx-zuetiwc agents and dietary considerations. The patient was counseled on concern for caution with operating a motor vehicle while using opiate medications. PLAN: 1. We discussed treatment options with the patient today. We will refill her morphine 15 mg b.i.d., #60 for today and 4-week and 8 weeks supply as well as her hydrocodone 5/325 for 3 months. 2. We discussed her oxcarbazepine and gabapentin and amitriptyline. These medicines she uses for her neuropathic pain. She is having slight swelling in [facility] [address] [place] [address] PAIN MANAGEMENT CONSULTATION Name: ANNA COFFMAN Room #: REG [facility]..#: [id number] Admission: 07/15/19 Attend Phys: Katarzyna Cyr Discharge: Date of : 38 Report #: [id number] her lower extremities. We will try to decrease her carbamazepine and see if this is beneficial. Hopefully, we will be able to wean off this medication slowly and keep her on 2 other neuropathic medications. She is agreeable with this plan of care. Today, we will send electronically her oxcarbazepine 150 mg b.i.d. with 2 additional refills with the plan at her next visit to decrease it to 1 tablet a day. 3. I will send her gabapentin 300 mg capsules, #360. The patient takes 4 tablets 3 times a day with 5 additional refills and amitriptyline 25 mg, #90 with 1 additional refill. 4. We will collect a random drug screen on this patient at her next visit since she was unable to collect this today. The patient is seen today in collaboration with Dr. Carly Bowen. <ELECTRONICALLY SIGNED> By: Katarzyna Cyr 07/16/19 0851 [id number] Katarzyna Cyr /shabnam
== END ==
LOC: PAIN 06:54
DX: M47.27 Other spondylosis with radiculopathy, lumbosacral region (principal); M51.16 Intervertebral disc disorders with radiculopathy, lumbar region; G62.9 Polyneuropathy, unspecified; M48.061 Spinal stenosis, lumbar region without neurogenic claudication; Z79.899 Other long term (current) drug therapy

== ENCOUNTER → 2019-10-13 | Outpatient (CLI) | payer OTHER ==
[~2019-10-13] VITALS: Ht 172.7 cm; Wt 81.1 kg
[~2019-10-13] MED LIST changes: +NORCO 5-325 TA1 EAC2 PO
[2019-10-13 09:47] VITALS: BP 143/66
--- NOTE | 2019-10-13 10:04 | NUR ---
Pain Clinic Assessment: 1. History of Osteoarthritis: BACK HANDS History of Rheumatoid Arthritis: DENIES 2. Height: 5 ft. 8 in. 172.7 cm. Weight: 178.8 lb. oz. 81.103 kg. Patient's BMI: 27.2 3. Vital Signs: BP: 143/66 Pulse: 70 Resp: 16 Temp: 02 Sat: 97 ECG Mon: 4. Pain Intensity: 4-5 5. Fall Risk: Dizziness: N Needs help standing or walking: Y Fallen in the last 3 months: N Fall risk comments: 6. Patient on Blood Thinner: None 7. History of Hypertension: Y 8. Opioid Therapy greater than 6 weeks: Y Opiate Contract Signed: 08/26/15 9. Risk Assessment Tool Provided: LOW RISK 0/0Y 10. Functional Assessment Tool: 11. Recreational Drug Use: Never Drug Type: Tobacco Use: Never Smoker Tobacco Type: Amount or Packs/day: How Many Years: Alcohol Use: No Frequency: Quant:
--- NOTE | 2019-10-13 14:30 | HPC ---
[facility] [address] [place] [address] PAIN MANAGEMENT CONSULTATION Name: ANNA OCFFMAN Room #: REG ALISHA Sabine.#: [id number] Admission: 10/13/19 Attend Phys: Katarzyna Cyr Discharge: Date of : 38 Report #: [id number] THIS REPORT FOR: cc: Edison Kidd MD, Elliott L. MD Hocker,Katarzyna FINK ~ CC: David Daily DO DATE OF SERVICE: 10/13/2019 CHIEF COMPLAINT: Low back pain, left lower extremity pain, and paresthesias. HISTORY OF PRESENT ILLNESS: This is a very pleasant 79-year-old female, who returns to the pain clinic today to discuss her opioid medications and her medications that she uses for her neuropathy. The patient states that her pain score today is 4-5. She feels that her treatment plan is very beneficial in reducing her pain, allowing her to be as active as she would like at home. She states that she does use a walker within the house, but today she is using 2 canes when she walks to our office. Usually standing and walking is more painful for her causing aching sensation in her lower back and legs. She feels that the medication as well as lying down and sitting have been beneficial. The patient is wondering if she should decrease some of her gabapentin or if she should continue on her current 4 pills 3 times a day. She denies any problems with constipation. She does take MiraLax and Senokot, and manages quite well with those medications. ALLERGIES: No known drug allergies. CURRENT LIST OF MEDICATIONS: Amitriptyline 25 mg at bedtime, oxcarbazepine 150 mg b.i.d., gabapentin 1200 mg t.i.d., morphine sulfate 15 mg b.i.d., hydrocodone 5/325 p.r.n., Senokot, MiraLax, fexofenadine, Procardia, multivitamin, fenofibric acid, calcium, omega 3, and aspirin. PATIENT'S PQRS: 1. She has arthritic changes in her hands and back. She denies any rheumatoid arthritis. 2. Height is 5 feet 8 inches, weight is 178, BMI is 27. Vital signs, 143/66, pulse is 70, respirations 16, oxygen sat is 97%. Pain score is 4-5. Fall risk. Denies dizziness. Does need assistance walking. She uses a cane or a walker. Has not fallen in the last 3 months. The patient is not on any blood thinners, but does take medicine for hypertension. Her opioid therapy is greater than 6 weeks; therefore, an opioid signed contract is on the chart. Risk assessment is low. Functional assessment is 44/70. 3. Recreational drug use, she denies. She is not a smoker and does not drink alcohol. [address] [address] PAIN MANAGEMENT CONSULTATION Name: ANNA COFFMAN Room #: REG [facility].#: [id number] Admission: 10/13/19 Attend Phys: Katarzyna Cyr Discharge: Date of : 38 Report #: [id number] According to the prescription monitoring system, the patient is filling appropriately in a timely fashion. Her morphine mEq per day is 50 MMEs. We will check a random drug screen on this patient today. The patient states taking her medications this morning. PHYSICAL EXAMINATION: GENERAL: This is a well-developed, well-nourished 79-year-old female who is alert and orientated, rating her pain score today at 4-5. HEENT: Normocephalic, atraumatic. Extraocular eye muscles are intact. She is wearing glasses and a mask. MUSCULOSKELETAL: She is without significant scoliosis, lordosis or kyphosis. Her lower extremity strength is symmetrical, but deconditioned bilaterally. She does have good sensation from L1-S2. 1+ edema is present in her lower extremities. She has pain and tenderness across the lumbosacral region of her spine and is tender to palpation. Seated straight leg raising is negative. ASSESSMENT: 1. Symptomatic lumbar radiculopathy. 2. Progressively worse spinal stenosis of lumbar spine. 3. Displacement of the lumbar intervertebral disk with radiculopathy. 4. Lumbosacral spondylosis with radiculopathy. 5. Peripheral neuropathy. 6. Complex medical management utilizing scheduled medications. PLAN: 1. We discussed treatment options with the patient today. The patient was wondering if she should alter her gabapentin doses. So after much discussion, we decided to keep her Neurontin at 1200 mg 3 times a day and continue her oxcarbazepine at that current dose of 150 mg twice a day. No scripts needed for these medications. In the future, we may try to decrease her gabapentin. 2. She is to continue her amitriptyline at bedtime as well. The patient feels that this is very beneficial allowing her with sleep. 3. Dr. David Daily will send her hydrocodone 5/325, #120 and morphine 15 mg b.i.d., #60 for 3 months total of each of these medications. 4. We will collect a drug screen from urine today. It has been greater than a year since her last screening. 5. The patient will follow up in 3 months or as needed if she reports increasing pain. The patient is seen today in collaboration with Dr. David Daily. <ELECTRONICALLY SIGNED> By: Katarzyna Cyr 10/13/19 1430 [id number] Katarzyna Cyr /nt
== END ==
LOC: PAIN 08:46
PROVIDERS: ATTEND Clinical Nurse Specialist Adult Health
DX: M51.16 Intervertebral disc disorders with radiculopathy, lumbar region (principal); M48.061 Spinal stenosis, lumbar region without neurogenic claudication; R20.2 Paresthesia of skin; G62.9 Polyneuropathy, unspecified; M47.27 Other spondylosis with radiculopathy, lumbosacral region; F11.20 Opioid dependence, uncomplicated; Z79.899 Other long term (current) drug therapy

== ENCOUNTER → 2020-01-06 | Outpatient (CLI) | payer OTHER ==
[~2020-01-06] VITALS: Ht 172.7 cm; Wt 83.5 kg
--- NOTE | ~2020-01-06 | HPC ---
[facility] [place] [place] [address] PAIN MANAGEMENT CONSULTATION Name: ANNA COFFMAN Room #: REG Phoebe Sabine.#: [id number] Admission: 01/06/20 Attend Phys: Katarzyna Cyr Discharge: Date of : 38 Report #: [id number] THIS REPORT FOR: cc: Edison Kidd MD, Elliott L. MD Hocker,Katarzyna FINK ~ CC: Katarzyna Daily DO DATE OF SERVICE: 01/06/2020 CHIEF COMPLAINT: Low back pain, left lower extremity pain and paresthesias. HISTORY OF PRESENT ILLNESS: This is a very pleasant 79-year-old female who returns to the pain clinic today for a refill of her medications. She reports she is doing quite well on her current regimen of opioid medications and neuropathic medicines. She is reporting a pain score of 4/10. It is a burning and aching sensation that is in her lower back that radiates down both legs, into her feet. It is worse with standing and walking. She feels like sitting is her most beneficial position. She reports using a cane when she is out of the house but a walker at home when she is doing her housekeeping chores. The patient does report using Senokot and MiraLax as needed for ongoing constipation issues as a result of her medications. The patient reports she has been staying home, trying to stay healthy. She did have the flu vaccination earlier and is hopeful to have the coronavirus vaccination when it is available to the elderly population. Today, she is requesting refills of her medicines. ALLERGIES: No known drug allergies. CURRENT LIST OF MEDICATIONS: Morphine sulfate 15 mg b.i.d., hydrocodone 5/325 p.r.n., amitriptyline 25 mg at bedtime, oxcarbazepine 150 mg b.i.d., gabapentin 1200 mg t.i.d., Senokot, MiraLax, fexofenadine, Procardia, multivitamin, fenofibric acid, Tums, fish oil and aspirin. PQRS: 1. She has less diffuse osteoarthritis in her hands and back. Denies any rheumatoid arthritis. 2. Height is 5 feet 8 inches, weight is 184. ____ 28. 3. Vital signs 153/61, pulse is 85, respirations 16, oxygen sat is 97%. 4. Pain score is 4/10. 5. Denies dizziness. Does use a cane or a walker for ambulation and has not fallen in the last 3 months. 6. The patient is not on any blood thinners but does take medicine for [address] [address] PAIN MANAGEMENT CONSULTATION Name: MEGHNAAGUSTÍNANNAGLORIA BENNETT Room #: REG CL Golden#: [id number] Admission: 01/06/20 Attend Phys: Katarzyna Cyr Discharge: Date of : 38 Report #: [id number] hypertension. 7. Opioid therapy is greater than 6 weeks; therefore, an opioid signed contract is on the chart. Risk assessment is low. Functional assessment is 44/70. 8. Recreational drug use, she denies. She is not a smoker and does not drink alcohol. According to the prescription monitoring system, the patient is filling her medications appropriately in a timely fashion. There is a random drug screen that we did check at her last visit that is appropriate for her medications as well. Her morphine milliequivalent, according to the CDC guidelines is 50 MME and she is seen in our clinic every 3 months. PHYSICAL EXAMINATION: GENERAL: This is an alert and orientated, well-developed, well-nourished 79-year-old female who appears her stated age, placing her current pain score at 4/10. HEENT: Normocephalic, atraumatic. Extraocular eye muscles are intact. She is wearing a mask and glasses. MUSCULOSKELETAL: She is without significant scoliosis, kyphosis or lordosis. She does use a cane for assistance with ambulation and has a slightly antalgic gait. Her lower extremity strength is symmetrical, though deconditioned with good sensation from L1-S2. She has tenderness in her lumbosacral region and is tender to palpation that does radiate down her legs. Seated straight leg raising is negative. ASSESSMENT: 1. Symptomatic lumbar radiculopathy. 2. Progressively worse spinal stenosis of the lumbar spine. 3. Placement of a lumbar intervertebral disk with radiculopathy. 4. Peripheral neuropathy. 5. Lumbosacral spondylosis with radiculopathy. 6. Complex medical management utilizing scheduled medications. We reviewed the fact that opiate medications are being used to provide analgesia adequate to support activities of daily living, not attempting to achieve a specific pain score on the 0-10 Visual Analog Scale. The current opiate medications are providing sufficient analgesia to allow the patient to participate in activities of daily living. The patient is not exhibiting any aberrant behavior suggestive of drug diversion. The patient is not having any adverse reactions to medications. The patient is not suffering from daytime somnolence or mental acuity changes. The patient is managing opiate-induced constipation with appropriate [id number]-[id number] agents and dietary considerations. The patient was counseled on concern for caution with operating a motor vehicle while using opiate medications. PLAN: [address] [address] PAIN MANAGEMENT CONSULTATION Name: ANNA COFFMAN Room #: REG [facility]#: [id number] Admission: 01/06/20 Attend Phys: Katarzyna Cyr Discharge: Date of : 38 Report #: [id number] 1. We discussed treatment options with the patient today. The patient finds her medication very beneficial in controlling her pain. She has decreased her oxcarbazepine from t.i.d. to twice a day and has noticed no increase in her pain so we will continue that at a current dose of 150 twice a day. In the future, we may try to decrease this some more. 2. We will have Dr. David Daily send electronically, her morphine 15 mg b.i.d., #60 and hydrocodone 5/325, #120 for today for an 8-week supply. She is seen today in collaboration with him and will return in 3 months. By: 1022 0032 Katarzyna yCr /shabnam
[2020-01-06 09:04] VITALS: BP 153/61
--- NOTE | 2020-01-06 09:16 | NUR ---
Pain Clinic Assessment: 1. History of Osteoarthritis: BACK HANDS History of Rheumatoid Arthritis: DENIES 2. Height: 5 ft. 8 in. 172.7 cm. Weight: 184.0 lb. oz. 83.462 kg. Patient's BMI: 28.0 3. Vital Signs: BP: 153/61 Pulse: 85 Resp: 16 Temp: 02 Sat: 97 ECG Mon: 4. Pain Intensity: 4 5. Fall Risk: Dizziness: N Needs help standing or walking: Y Fallen in the last 3 months: N Fall risk comments: 6. Patient on Blood Thinner: None 7. History of Hypertension: Y 8. Opioid Therapy greater than 6 weeks: Y Opiate Contract Signed: 08/26/15 9. Risk Assessment Tool Provided: LOW RISK 0/0Y 10. Functional Assessment Tool: 11. Recreational Drug Use: Never Drug Type: Tobacco Use: Never Smoker Tobacco Type: Amount or Packs/day: How Many Years: Alcohol Use: No Frequency: Quant:
== END ==
LOC: PAIN 06:40
PROVIDERS: ATTEND Clinical Nurse Specialist Adult Health
DX: M47.27 Other spondylosis with radiculopathy, lumbosacral region (principal); M19.042 Primary osteoarthritis, left hand; M19.041 Primary osteoarthritis, right hand; M79.662 Pain in left lower leg; R20.2 Paresthesia of skin

== ENCOUNTER → 2020-03-30 | Outpatient (CLI) | payer OTHER ==
[~2020-03-30] MED LIST changes: +NORCO5 PO
--- NOTE | 2020-03-30 11:53 | HPC ---
[facility] [address] [place] [address] PAIN MANAGEMENT CONSULTATION Name: ANNA COFFMAN Room #: REG [facility] Sabine.#: [id number] Admission: 03/30/20 Attend Phys: Katarzyna Cyr Discharge: Date of : 38 Report #: [id number] THIS REPORT FOR: cc: Edison Kidd MD, Elliott L. MD Hocker,Katarzyna FINK ~ DATE OF SERVICE: 03/30/2020 CHIEF COMPLAINT: Low back pain, left lower extremity pain and paresthesias. This is a TeleMed appointment that I am speaking with patient from 8:00 to 8:17. HISTORY OF PRESENT ILLNESS: This is a very pleasant 79-year-old female who is well known to the pain clinic. She is discussing with me her pain via TeleMed appointment today. She has ongoing low back pain and lower extremity pain and paresthesias. She is requesting refills of her medications. She does suffer from severe spinal stenosis and has been treated with epidurals and medications. She does report that the medications help her quite significantly. States that she is able to perform her activities around the house by taking her hydrocodone several times a day and taking her morphine in the morning and at night. She states her pain is worse with walking, but her medications enable her to be active. She reports sitting is most painful for her. Today, she is rating a pain score as 6/10. She does use a cane at all times to help with balance. She denies any constipation as long as she takes Senokot and occasionally MiraLax. The patient does report she is on the list for COVID vaccination though she has not been able to have one yet. She is hopeful once more pharmacies offer then she will be able to obtain this vaccination. ALLERGIES: No known drug allergies. CURRENT LIST OF MEDICATIONS: Morphine sulfate 15 mg b.i.d., hydrocodone 5/325 up to 4 times a day, amitriptyline, oxcarbazepine, gabapentin, Senokot, MiraLax, Gricelda, Procardia, multivitamin, fenofibric acid, Tums and aspirin. PQRS: 1. She has diffuse osteoarthritis in her hands and back. Denies any rheumatoid arthritis. Pain score today is 6/10. She has not fallen in the last 3 months. She is not on any blood thinners, but she is being treated for hypertension. She is on chronic opioids and has a low opioid addiction potential. Her functional score is 44/70. Her risk assessment is low. 2. Recreational drug use, she denies. She is not a smoker and does not drink alcohol. According to the prescription monitoring system, she is filling appropriately for her medications. She is due to fill her medications next week[place] [address] PAIN MANAGEMENT CONSULTATION Name: ANNA COFFMAN Room #: REG CLPhoebe Franks#: [id number] Admission: 03/30/20 Attend Phys: Katarzyna Cyr Discharge: Date of : 38 Report #: [id number] drug screen on the chart that is appropriate. Her morphine mEq according to the CDC guidelines is 50 MME. She is seen in the clinic every 3 months. PHYSICAL EXAMINATION: Deferred due to TeleMed. REVIEW OF SYSTEMS: She is alert and orientated, rating her pain score today at 6/10, states it is in her lower back that radiates down her legs bilaterally, greater on the left today. ASSESSMENT: 1. Symptomatic lumbar radiculopathy. 2. Progressively worse spinal stenosis of lumbar spine. 3. Displacement of lumbar intervertebral disk with radiculopathy. 4. Peripheral neuropathy. 5. Lumbosacral spondylosis with radiculopathy. 6. Complex medical management utilizing scheduled opioid medications. PLAN: 1. We discussed treatment options with the patient today. The patient believes her medication is very beneficial allowing her to be as active as she would like around the house. She is not having any adverse reactions to her medications and would like to continue her morphine and hydrocodone. 2. We will have Dr. David Daily send electronically 3 months of hydrocodone 5/325, #120; morphine sulfate ER 15 mg, #60. The patient is not needing her additional adjunct medications filled today. 3. We did again discuss the COVID vaccine as she stated she is trying to get through [facility] that will start looking at the [facility] pharmacies near her house. 4. The patient will return in 3 months. At that time, she will see Dr. David Daily. He collaborated care today. <ELECTRONICALLY SIGNED> By: Katarzyna Cyr 03/30/20 1153 [id number] [id number] Katarzyna Cyr /shabnam
== END ==
LOC: PAIN 07:08 → TELEPC 08:05 → PAIN 12:25
PROVIDERS: ATTEND Clinical Nurse Specialist Adult Health
DX: M51.16 Intervertebral disc disorders with radiculopathy, lumbar region (principal); M79.605 Pain in left leg; R20.2 Paresthesia of skin; M48.061 Spinal stenosis, lumbar region without neurogenic claudication; G62.9 Polyneuropathy, unspecified; M47.27 Other spondylosis with radiculopathy, lumbosacral region; F11.20 Opioid dependence, uncomplicated

== ENCOUNTER → 2020-06-22 | Outpatient (CLI) | payer OTHER ==
[~2020-06-22] VITALS: Ht 172.7 cm; Wt 78.0 kg
[~2020-06-22] MED LIST changes: +SPIRONOLACTONE25 MG PO
[2020-06-22 09:31] VITALS: BP 179/81
--- NOTE | 2020-06-22 09:33 | NUR ---
Pain Clinic Assessment: 1. History of Osteoarthritis: BACK HANDS History of Rheumatoid Arthritis: DENIES 2. Height: 5 ft. 8 in. 172.7 cm. Weight: 172.0 lb. oz. 78.019 kg. Patient's BMI: 26.2 3. Vital Signs: BP: 179/81 Pulse: 78 Resp: 16 Temp: 02 Sat: 94 ECG Mon: 4. Pain Intensity: 7 5. Fall Risk: Dizziness: N Needs help standing or walking: N Fallen in the last 3 months: N Fall risk comments: 6. Patient on Blood Thinner: None 7. History of Hypertension: Y 8. Opioid Therapy greater than 6 weeks: Y Opiate Contract Signed: 08/26/15 9. Risk Assessment Tool Provided: LOW RISK 0 10. Functional Assessment Tool: 11. Recreational Drug Use: Never Drug Type: Tobacco Use: Never Smoker Tobacco Type: Amount or Packs/day: How Many Years: Alcohol Use: No Frequency: Quant:
--- NOTE | 2020-06-23 15:17 | HPC ---
[facility] [address] [address] PAIN MANAGEMENT CONSULTATION Name: ANNA COFFMAN Room #: REG ALISHA MiguelSheelaAnita.#: [id number] Admission: 06/22/20 Attend Phys: Katarzyna Cyr Discharge: Date of : 38 Report #: [id number] THIS REPORT FOR: cc: Edison Kidd MD, Elliott L. MD Hocker, Amanda CNS ~ DOC #: [id number] cc: Edison Kidd MD, DO Katarzyna Parra, WAYNE DATE OF SERVICE: 06/22/2020 CHIEF COMPLAINT: Low back pain, left lower extremity pain and paresthesias. HISTORY OF PRESENT ILLNESS: This is a pleasant 79-year-old female who returns to the pain clinic today for renewal of her opioid medications. Today, she is reporting her pain a 7/10. She feels that is slightly elevated today due to weather changes and walking into the clinic. Her pain is a burning, aching sensation in her low back that radiates down her legs into her feet bilaterally. She reports lying down is beneficial, though sometimes the covers on her feet do aggravate her pain. Normally standing and walking are her most problematic positions. She does utilize a cane at all times and reports no falls since we have last seen her. The patient reports some constipation issues as a result of her opioid medications that she manages it with Senokot and MiraLax. Today, she is requesting refills of her medications that are due towards the end of this month. ALLERGIES: No known drug allergies. MEDICATIONS: spironolactone, morphine sulfate 15 mg b.i.d., hydrocodone 5/325 p.r.n., gabapentin, amitriptyline, oxcarbazepine, Senokot, MiraLax, Gricelda, Procardia, Centrum Silver, fenofibric acid, calcium, Flonase, fish oil and aspirin. PQRS: 1. She has osteoarthritic changes in her hands and spine. Denies any rheumatoid arthritis. 2. Height is 5 feet 8 inches, weight is 172. BMI is 26. 3. Vital signs: Blood pressure 179/81, pulse is 78, respirations 16, oxygen sat is 94%. 4. Pain score 7/10. 5. Denies dizziness. Does not need help walking or standing. Has not fallen in the last 3 months. 6. The patient is not on any blood thinners, but does take medicine for hypertension. 7. Opioid therapy is greater than 6 weeks; therefore, an opioid signed contract is on the chart. [address] [address] PAIN MANAGEMENT CONSULTATION Name: ANNA COFFMAN Room #: REG Phoebe Franks#: [id number] Admission: 06/22/20 Attend Phys: Katarzyna Cyr Discharge: Date of : 38 Report #: [id number] 8. Risk assessment low. Functional assessment 44/70. 9. Recreational drug use, she denies. She is not a smoker and does not drink alcohol. According to the prescription monitoring system, her morphine mEq is 50 MMEs. She is due to fill later this month on the . There is a urine drug screen in the chart that is appropriate as well for her medications. PHYSICAL EXAMINATION: GENERAL: This is alert and orientated, well-developed, well-nourished 79-year-old female who appears her stated age, rating her current pain score at 7/10. She is a good historian. HEENT: Normocephalic, atraumatic. Extraocular eye muscles are intact. She is wearing a mask and glasses. MUSCULOSKELETAL: She is without significant scoliosis, kyphosis, or lordosis. She has tenderness in the lumbosacral region that radiates into her legs bilaterally. Seated straight leg raising is negative. Lower extremity strength is symmetrical at 5/5 with good sensation. Gait is antalgic, favoring her right lower extremity over her left. ASSESSMENT: 1. Symptomatic lumbar radiculopathy. 2. Severe and progressively worsening spinal stenosis of lumbar spine. 3. Displacement of lumbar intervertebral disk with radiculopathy. 4. Lumbosacral spondylosis with radiculopathy. 5. Peripheral neuropathy. 6. Lumbar degeneration. 7. Complicated medical management using opioid medications under written agreement. We reviewed the fact that opiate medications are being used to provide analgesia adequate to support activities of daily living, not attempting to achieve a specific pain score on the 0-10 Visual Analog Scale. The current opiate medications are providing sufficient analgesia to allow the patient to participate in activities of daily living. The patient is not exhibiting any aberrant behavior suggestive of drug diversion. The patient is not having any adverse reactions to medications. The patient is not suffering from daytime somnolence or mental acuity changes. The patient is managing opiate-induced constipation with appropriate [id number] agents and dietary considerations. The patient was counseled on concern for caution with operating a motor vehicle while using opiate medications. PLAN: 1. We discussed treatment options with the patient today. The patient finds her medication very beneficial in reducing her pain, allowing her to be as active as she is able. We will continue her on her morphine sulfate [address] [address] PAIN MANAGEMENT CONSULTATION Name: ANNA COFFMAN [facility] [id number] Admission: 06/22/20 Attend Phys: Katarzyna Cyr Discharge: Date of : 38 Report #: [id number] b.i.d., #60. This will be sent electronically to be filled 07/07/2020, then in 4 weeks and in 8 weeks as well as her hydrocodone 5/325, #120, again the same release dates. 2. We will continue her on her amitriptyline 25 mg #90 with 1 refill. This is a 6-month supply and her gabapentin 300 mg, she takes 4 tablets 3 times a day, quantity 360 with 5 additional refills, again a 6-month supply. We will not send her oxcarbazepine at this time. She has plenty of refills, but we will call this and if need be, the patient will try to decrease this medication to 1 tablet at bedtime, though if her neuropathy increases, she is instructed to return to 2 tablets a day. We are trying to decrease some of the medications that affect her cognitively though she has not had any decline that I have noticed. 3. The patient has had her COVID vaccine and is starting to go out in public, though she continues to wear a mask. Time spent with the patient in consultation, reviewing recent studies, clinical notes and physician reports, physical examination and correlation of findings and medical documentation to determine possible treatment options, 12 minutes. Time spent in preparation for appointment reviewing prescription monitoring reports, reviewing previous records and proposed treatment options, reviewing current medications 5 minutes. Time spent preparing and sending electronic prescriptions, documentation of visit and plan of treatment with collaborating physician, Dr. David Daily 5 minutes. Total time spent 22 minutes. WAYNE Doan/LEONCIO <ELECTRONICALLY SIGNED> By: Katarzyna Cyr 06/23/20 1517 [id number] Katarzyna Cyr /nt
== END ==
LOC: PAIN 07:02
PROVIDERS: ATTEND Clinical Nurse Specialist Adult Health
DX: M79.605 Pain in left leg (principal); R20.2 Paresthesia of skin; M51.16 Intervertebral disc disorders with radiculopathy, lumbar region; M47.27 Other spondylosis with radiculopathy, lumbosacral region; G62.9 Polyneuropathy, unspecified; F11.20 Opioid dependence, uncomplicated; Z88.8 Allergy status to other drugs, medicaments and biological substances; Z79.899 Other long term (current) drug therapy

== ENCOUNTER → 2020-09-06 | Outpatient (CLI) | payer OTHER ==
[~2020-09-06] VITALS: Ht 172.7 cm; Wt 78.5 kg
[2020-09-06 08:49] VITALS: BP 162/78
--- NOTE | 2020-09-06 08:52 | NUR ---
Pain Clinic Assessment: 1. History of Osteoarthritis: BACK HANDS History of Rheumatoid Arthritis: DENIES 2. Height: 5 ft. 8 in. 172.7 cm. Weight: 173.0 lb. oz. 78.472 kg. Patient's BMI: 26.3 3. Vital Signs: BP: 162/78 Pulse: 71 Resp: 16 Temp: 02 Sat: 97 ECG Mon: 4. Pain Intensity: 6 5. Fall Risk: Dizziness: N Needs help standing or walking: N Fallen in the last 3 months: N Fall risk comments: 6. Patient on Blood Thinner: None 7. History of Hypertension: Y 8. Opioid Therapy greater than 6 weeks: Y Opiate Contract Signed: 08/26/15 9. Risk Assessment Tool Provided: LOW RISK 0 10. Functional Assessment Tool: 11. Recreational Drug Use: Never Drug Type: Tobacco Use: Never Smoker Tobacco Type: Amount or Packs/day: How Many Years: Alcohol Use: No Frequency: Quant:
--- NOTE | 2020-09-07 07:57 | HPC ---
[facility] [address] [place] [address] PAIN MANAGEMENT CONSULTATION Name: ANNA COFFMAN Room #: REG ALISHA Sabine.#: [id number] Admission: 09/06/20 Attend Phys: Katarzyna Cyr Discharge: Date of : 38 Report #: [id number] THIS REPORT FOR: cc: Edison Kidd MD, Elliott L. MD Hocker,Katarzyna FINK ~ cc: Edison Kidd MD, David Daily DO DATE OF SERVICE: 09/06/2020 CHIEF COMPLAINT: Low back pain, left lower extremity pain and paresthesias. HISTORY OF PRESENT ILLNESS: This is a very pleasant 80-year-old female who returns to the pain clinic today for continuation of her medications. We treat her for her ongoing low back pain that does radiate into her legs bilaterally. Today she is stating that she is quite tired. She has been caring for her family members who had recent hip surgeries. She reports having to be very active in the last couple of months and that has increased her pain. Therefore, today, she is rating her pain score as 6/10, described it as an aching, burning sensation, especially when she is walking and standing for any prolonged periods of time. Overall, she believes the current medication dose along with her adjunct medications are very beneficial in helping relieve a significant portion of her pain and enables her to be this active. She does report some constipation, though manages it with MiraLax or Senokot on as needed basis. The patient reports that she has been staying at home most of the time with her family members and has had her COVID vaccinations. ALLERGIES: No known drug allergies. CURRENT LIST OF MEDICATIONS: Gabapentin 1200 mg t.i.d., amitriptyline 25 mg at bedtime, hydrocodone, morphine sulfate ER 15 mg b.i.d., spironolactone, oxcarbazepine, Senokot, MiraLax, Gricelda, Procardia, multivitamin, fenofibric acid, calcium, Flonase, fish oil and aspirin. PQRS: 1. She has osteoarthritic changes in her hands and spine. Denies any rheumatoid arthritis. Height is 5 feet 8 inches, weight is 173. BMI is 26. 2. Vital signs 162/78, pulse is 71, respirations 16, oxygen sat is 97%. 3. Pain score 6/10. 4. Denies dizziness, does not need help walking or standing, has not fallen in the last 3 months. She does utilize a cane. 5. The patient is not on any blood thinners, but does take medicine for hypertension. Opioid therapy is greater than 6 weeks; therefore, an opioid signed contract is on the chart. 6. Risk assessment is low. Functional assessment is 44/70. 7. Recreational drug use, she denies. She is not a smoker and does not drink alcohol. [address] [address] PAIN MANAGEMENT CONSULTATION Name: MEGHNAANNA BENNETT Room #: STEPHANIE Franks#: [id number] Admission: 09/06/20 Attend Phys: Katarzyna Cyr Discharge: Date of : 38 Report #: [id number] According to the prescription monitoring system, she is filling appropriately. She is due today. Her morphine mEq is 50 MME; therefore, she is seen in our clinic every 3 months. There is a urine drug screen on the chart that is appropriate for her medications as well. PHYSICAL EXAMINATION: GENERAL: This is alert and orientated, well-developed, well-nourished 80-year-old female who appears her stated age, rating her pain score today at 6/10. HEENT: Normocephalic, atraumatic. Pupils equal, round and reactive to light. She is wearing a mask. EXTREMITIES: No clubbing, no cyanosis, no edema. She does utilize a cane for ambulation. MUSCULOSKELETAL: Lower extremity strength is symmetrical, but weakened bilaterally due to deconditioning. Does use a cane for ambulation. She has tenderness in her lower spine region with no spinal process tenderness. Seated straight leg raising is negative. ASSESSMENT: 1. Symptomatic lumbar radiculopathy. 2. Progressively worse spinal stenosis of lumbar spine. 3. Displacement of the lumbar intervertebral disk with radiculopathy. 4. Lumbosacral spondylosis with radiculopathy. 5. Peripheral neuropathy. 6. Complex medical management utilizing scheduled opioid medications. 7. Chronic intractable pain. We reviewed the fact that opiate medications are being used to provide analgesia adequate to support activities of daily living, not attempting to achieve a specific pain score on the 0-10 Visual Analog Scale. The current opiate medications are providing sufficient analgesia to allow the patient to participate in activities of daily living. The patient is not exhibiting any aberrant behavior suggestive of drug diversion. The patient is not having any adverse reactions to medications. The patient is not suffering from daytime somnolence or mental acuity changes. The patient is managing opiate-induced constipation with appropriate jxhr-rof-jkuieva agents and dietary considerations. The patient was counseled on concern for caution with operating a motor vehicle while using opiate medications. A physical exam was performed and the patient's functional status was evaluated. All patients with back pain were advised against the bed rest greater than 4 days and were advised to return to normal activities. Pain score assessment was noted and the treatment plan was reviewed with the patient. All current medications, both prescribed and OTC were reviewed and reconciled on the electronic medical record. Tobacco screening was accomplished and smoking [facility] [address] [place] [address] PAIN MANAGEMENT CONSULTATION Name: ANNA COFFMAN Room #: REG [facility] M..#: [id number] Admission: 09/06/20 Attend Phys: Katarzyna Cyr Discharge: Date of : 38 Report #: [id number] cessation was advised when indicated. BMI was noted and diet/exercise modification was recommended for all patients following outside normal parameters. I reviewed with the patient today their responsibilities to safeguard prescription medications, reviewed their responsibility to utilize medications only as prescribed by the physician. They are to seek and receive pain medications only from 1 physician group ( [facility]). They are to use 1 pharmacy and keep the clinic informed if they change pharmacies. Their responsibilities include making followup visits in a timely fashion and to avoid abrupt discontinuation of medication usage. Their responsibilities further include bringing their medications (bottles from the pharmacy with residual pills) to the visit for possible confirmation of pill counts and the patient understands it is their responsibility to submit to random drug screens to ensure both that the medications prescribed are present, and that no other controlled substances are present. All prescriptions provided today were generated electronically. PLAN: 1. We will discuss treatment options with the patient today. The patient finds her hydrocodone and MS Contin very beneficial allowing her to be as active as possible. She recently had to care for 2 family members with hip replacements. She believes the medication made this possible to be more active despite being tired today. We will continue her [place] 5 mg/325 mg, #120 and MS Contin 15 mg, #60. These will be sent electronically by Dr. David Daily for today for an 8-week release. 2. The patient continues her adjunct medication that helps with her neuropathy as well as her pain, though not needing refills of her oxcarbazepine, amitriptyline, and gabapentin. The patient will follow up in 3 months. Time spent on the patient in consultation, reviewing recent studies and clinical notes and physician reports, physical examination and correlation of findings and medical documentation to determine possible treatment options 11 minutes. Time spent and preparation for appointment reviewing monitoring reports, reviewing previous records and proposed treatment options, reviewing current medications, 5 minutes. Time spent preparing and sending electronic prescriptions with collaborating physician, Dr. David Daily, documentation of visit and plan of care 6 minutes. Total time spent 22 minutes. <ELECTRONICALLY SIGNED> By: Katarzyna Cyr 09/07/20 0757 0823 14 Katarzyna Cyr /shabnam
== END ==
LOC: PAIN 07:07
PROVIDERS: ATTEND Clinical Nurse Specialist Adult Health
DX: M51.16 Intervertebral disc disorders with radiculopathy, lumbar region (principal); M47.26 Other spondylosis with radiculopathy, lumbar region; G62.9 Polyneuropathy, unspecified; Z79.891 Long term (current) use of opiate analgesic; Z79.899 Other long term (current) drug therapy

== ENCOUNTER → 2020-12-06 | Outpatient (CLI) | payer OTHER ==
[~2020-12-06] VITALS: Ht 172.7 cm; Wt 80.4 kg
[2020-12-06 10:08] VITALS: BP 188/84
--- NOTE | 2020-12-06 10:19 | NUR ---
Pain Clinic Assessment: 1. History of Osteoarthritis: BACK HANDS History of Rheumatoid Arthritis: DENIES 2. Height: 5 ft. 8 in. 172.7 cm. Weight: 177.2 lb. oz. 80.377 kg. Patient's BMI: 26.9 3. Vital Signs: BP: 188/84 Pulse: 70 Resp: 16 Temp: 02 Sat: 97 ECG Mon: 4. Pain Intensity: 4 REST/7 WALKING 5. Fall Risk: Dizziness: N Needs help standing or walking: Y Fallen in the last 3 months: N Fall risk comments: 6. Patient on Blood Thinner: None 7. History of Hypertension: Y 8. Opioid Therapy greater than 6 weeks: Y Opiate Contract Signed: 08/26/15 9. Risk Assessment Tool Provided: LOW RISK 0 10. Functional Assessment Tool: 11. Recreational Drug Use: Never Drug Type: Tobacco Use: Never Smoker Tobacco Type: Amount or Packs/day: How Many Years: Alcohol Use: No Frequency: Quant:
--- NOTE | 2020-12-07 09:03 | HPC ---
[facility] [address] [place] [address] PAIN MANAGEMENT CONSULTATION Name: ANNA COFFMAN Room #: REG ALISHA MiguelSheelaAnita.#: [id number] Admission: 12/06/20 Attend Phys: David Daily DO Discharge: Date of : 38 Report #: [id number] THIS REPORT FOR: cc: Edison Kidd MD,David Coon MD, DO ~ cc: Edison Kidd MD DATE OF SERVICE: 12/06/2020 CHIEF COMPLAINT: Low back pain, left lower extremity pain with paresthesias. HISTORY OF PRESENT ILLNESS: As you know, the patient is an 80-year-old female returning to our clinic for continuation of medication management. She feels medications are working beneficially for pain control to address low back and left lower extremity pain due to a lumbar radiculopathy, which is not surgical based on recent evaluations. The patient reports improvement in symptoms of about 60% with medications. She states at rest, her pain is about a 4/10; with ambulation, pain reaches as high as a level of 7/10. This is despite the current medications. She returns today in followup visit, requesting refill on medications to address pain levels that she has reported today. She is denying side effects to the medication including sleepiness, disorientation, confusion, mental slowing, or constipation. She wishes to continue the therapy at current dosing. ALLERGIES: No known drug allergies. CURRENT MEDICATIONS: Amitriptyline 25 mg p.o. at bedtime, gabapentin 1200 mg t.i.d., hydrocodone 5/325 mg one tab every 6 hours p.r.n. for pain, morphine ER 15 mg twice a day, spironolactone 25 mg once a day, oxcarbazepine 150 mg b.i.d., Senokot-S 1 tab per day, MiraLax 17 grams p.r.n., fexofenadine 100 mg per day, nifedipine XL 30 mg once a day, multivitamin 1 tab per day, fenofibric acid 135 mg once a day, calcium carbonate 1 tab per day, fluticasone 2 sprays each nostril per day, omega-3 fish oil 1 tab per day, aspirin 325 mg per day. SOCIAL HISTORY: The patient reports she is a nonsmoker. Denies IV or illicit drug use. Denies any chronic alcohol use. She is retired, retired years ago, unaccompanied today. IMAGING: No new imaging available. PQRS: The patient has known arthritic changes of cervical spine, bilateral shoulders, hands and lumbar spine. No rheumatoid arthritis. She is placing current pain score anywhere from 4-7/10 depending on activity. She is a fall risk, but has not had a fall in last 3 months. Apparently, she utilizes a cane for ambulation at home and while here at the clinic. She is not on blood thinners, but is treated for hypertension. She is on chronic opioids, has a low [address] [address] PAIN MANAGEMENT CONSULTATION Name: ANNA COFFMAN Room #: REG ALISHA Franks#: [id number] Admission: 12/06/20 Attend Phys: David Daily DO Discharge: Date of : 38 Report #: [id number] opioid addiction potential based on assessment tool. Pain impact is 44/70, moderate interference of daily activities secondary to pain. PHYSICAL EXAMINATION: VITAL SIGNS: Blood pressure 188/84, pulse is 70, respiratory rate 16 and unlabored. The patient is 97% on room air. Height 5 feet 8 inches tall, weight 177.2 pounds, BMI calculated 26.9. GENERAL: Well-developed, well-nourished, well-hydrated 80-year-old female appearing her stated age. Pain is rated today anywhere from 4-7/10. HEENT: Normocephalic, atraumatic. Pupils are round. She is wearing a mask in compliance with COVID-19 regulations. EXTREMITIES: Show no clubbing, no cyanosis and no edema. MUSCULOSKELETAL: Lower extremity strength remains symmetrical again today. There is deconditioning noted bilaterally with strength measured at 5/5 without sustained contraction. She is utilizing a cane for ambulation. She has tenderness over the paraspinal musculature of lower lumbar spine. No spinous process tenderness, specifically. Seated straight leg raising negative. Supine straight leg raising negative. Fabere's test is negative. ASSESSMENT: 1. Symptomatic lumbar radiculopathy. 2. Progressively worsening spinal stenosis of lumbar spine. 3. Displacement of lumbar intervertebral disk with radiculopathy. 4. Lumbosacral spondylosis with radiculopathy. 5. Peripheral neuropathy. 6. Essential hypertension. 7. Complex medication management utilizing scheduled medications. 8. Chronic intractable pain. PLAN: 1. The patient has returned today in followup visit requesting refill on medications. It is noted the patient's blood pressure is 188/84, which is quite elevated from a systolic standpoint. Prior blood pressures have also been elevated. Prior to this, it was 162/78. I have requested the patient return to see the primary care physician for adjustments in antihypertensive therapy for optimization of her blood pressure. She will need to follow up with Dr. Edison Kidd as quickly as possible to make those adjustments. 2. We reviewed the fact that opiate medications are being used to provide analgesia adequate to support activities of daily living, not attempting to achieve a specific pain score on the 0-10 Visual Analog Scale. The current opiate medications are providing sufficient analgesia to allow the patient to participate in activities of daily living. The patient is not exhibiting any aberrant behavior suggestive of drug diversion. The patient is not having any adverse reactions to medications. The patient is not suffering from daytime somnolence or mental acuity changes. The patient is managing opiate-induced constipation with appropriate tllp-hjx-ymgvlam agents and dietary [address] [address] PAIN MANAGEMENT CONSULTATION Name: ANNA COFFMAN Room #: REG ALISHA Franks#: [id number] Admission: 12/06/20 Attend Phys: David Daily DO Discharge: Date of : 38 Report #: [id number] considerations. The patient was counseled on concern for caution with operating a motor vehicle while using opiate medications. A physical exam was performed and the patient's functional status was evaluated. All patients with back pain were advised against the bed rest greater than 4 days and were advised to return to normal activities. Pain score assessment was noted and the treatment plan was reviewed with the patient. All current medications, both prescribed and OTC were reviewed and reconciled on the electronic medical record. Tobacco screening was accomplished and smoking cessation was advised when indicated. BMI was noted and diet/exercise modification was recommended for all patients following outside normal parameters. I reviewed with the patient today their responsibilities to safeguard prescription medications, reviewed their responsibility to utilize medications only as prescribed by the physician. They are to seek and receive pain medications only from 1 physician group ([facility]). They are to use 1 pharmacy and keep the clinic informed if they change pharmacies. Their responsibilities include making followup visits in a timely fashion and to avoid abrupt discontinuation of medication usage. Their responsibilities further include bringing their medications (bottles from the pharmacy with residual pills) to the visit for possible confirmation of pill counts and the patient understands it is their responsibility to submit to random drug screens to ensure both that the medications prescribed are present, and that no other controlled substances are present. All prescriptions provided today were generated electronically. 3. The patient was provided a prescription of MS Contin 15 mg dose 1 tab p.o. b.i.d. I have given the patient #60 tablets, releasing today, 4 weeks from today and 8 weeks from today, 3 months' worth of medication. I did advise the patient prescriptions were sent via e-scribe to local pharmacy. She is not to obtain or receive prescriptions less than 60 total tablets each month. I did advise the patient if she receives a short dosing of the medication that is the amount that she will have for the entire month and not to receive medications that are not the total number provided on the prescription. 4. The patient was provided prescription of hydrocodone 5/325 mg one tab p.o. q. 6 hours p.r.n. pain. I have given the patient #120 to release today, 4 weeks from today, 8 weeks from today, 3 months' worth of medication. All prescriptions sent via e-scribe to local pharmacy. I have once again cautioned the patient not to receive a short dose of this medication, any dosing that she receives that should be 120 tablets total. If she receives less than 120 tablets that the amount that she has for that month. 5. The patient was provided prescription of Neurontin 300 mg dose. She takes 4 tabs in the morning, 4 tabs at noon, 4 tabs at night. I have provided the prescription for the patient of #360, releasing today, 4 weeks from today, 8 weeks from today, 3 months' worth of medication. 6. The patient was provided a refill prescription of oxcarbazepine [address] [address] PAIN MANAGEMENT CONSULTATION Name: ANNA COFFMAN Room #: REG ALISHA Franks#: [id number] Admission: 12/06/20 Attend Phys: David Daily DO Discharge: Date of : 38 Report #: [id number] 1 tab p.o. b.i.d., #60 tablets with 2 refills. 8. We will see the patient back in followup visit in 3 months for medication management. <ELECTRONICALLY SIGNED> By: David Daily DO 12/07/20 0903 [id number] 2220 David Daily DO /nt
== END ==
LOC: PAIN 07:04
PROVIDERS: ATTEND Anesthesiology Pain Medicine
DX: M51.16 Intervertebral disc disorders with radiculopathy, lumbar region (principal); M47.27 Other spondylosis with radiculopathy, lumbosacral region; M48.061 Spinal stenosis, lumbar region without neurogenic claudication; I10 Essential (primary) hypertension; G62.9 Polyneuropathy, unspecified; M79.605 Pain in left leg; G89.29 Other chronic pain; Z79.899 Other long term (current) drug therapy

== ENCOUNTER → 2021-03-03 | Outpatient (CLI) | payer OTHER ==
[~2021-03-03] VITALS: Ht 172.7 cm; Wt 80.7 kg
[2021-03-03 10:05] VITALS: BP 144/76
--- NOTE | 2021-03-03 10:19 | NUR ---
Pain Clinic Assessment: 1. History of Osteoarthritis: BACK HANDS History of Rheumatoid Arthritis: DENIES 2. Height: 5 ft. 8 in. 172.7 cm. Weight: 178.0 lb. oz. 80.740 kg. Patient's BMI: 27.1 3. Vital Signs: BP: 144/76 Pulse: 72 Resp: 18 Temp: 02 Sat: 97 ECG Mon: 4. Pain Intensity: 3 5. Fall Risk: Dizziness: N Needs help standing or walking: Y Fallen in the last 3 months: N Fall risk comments: 6. Patient on Blood Thinner: None 7. History of Hypertension: Y 8. Opioid Therapy greater than 6 weeks: Y Opiate Contract Signed: 08/26/15 9. Risk Assessment Tool Provided: LOW RISK 0 10. Functional Assessment Tool: 11. Recreational Drug Use: Never Drug Type: Tobacco Use: Never Smoker Tobacco Type: Amount or Packs/day: How Many Years: Alcohol Use: No Frequency: Quant:
== END ==
LOC: PAIN 07:13
PROVIDERS: ATTEND Clinical Nurse Specialist Adult Health
DX: M51.16 Intervertebral disc disorders with radiculopathy, lumbar region (principal); M47.26 Other spondylosis with radiculopathy, lumbar region; G62.9 Polyneuropathy, unspecified; G89.29 Other chronic pain; M79.661 Pain in right lower leg; I10 Essential (primary) hypertension; Z79.82 Long term (current) use of aspirin; Z79.899 Other long term (current) drug therapy